=== PATIENT | male | born 1950 | race Caucasian/White ===

== ENCOUNTER → 2018-07-29 09:24 | Outpatient (BNVA) | payer MEDICARE, OTHER, SELFPAY | PROVIDERS: Visit Provider Orthopaedic Surgery | DX: M17.11 Unilateral primary osteoarthritis, right knee (principal); E11.40 Type 2 diabetes mellitus with diabetic neuropathy, unspecified; Z79.4 Long term (current) use of insulin | CPT/HCPCS: 20610; 99211; 99213; J7325 ==

== ENCOUNTER → 2019-01-31 09:46 | Outpatient (BNVA) | payer MEDICARE, OTHER, SELFPAY | PROVIDERS: PCP Internal Medicine; Referring Provider Internal Medicine; Visit Provider Orthopaedic Surgery | DX: M17.11 Unilateral primary osteoarthritis, right knee (principal); Z47.89 Encounter for other orthopedic aftercare; Z98.1 Arthrodesis status; E11.8 Type 2 diabetes mellitus with unspecified complications; Z79.4 Long term (current) use of insulin | CPT/HCPCS: 20610; 99211; 99213; J1040; L1902 ==

== ENCOUNTER → 2019-02-09 07:54 | Outpatient (BNVA) | payer MEDICARE, OTHER, SELFPAY ==
--- NOTE | 2019-02-15 07:09 | OCONE_ITS ---
Date of service: 02/11/19 Time of Service: 08:00 History of Present Illness Chief Complaint: Persistent pain left subtalar joint despite fusion Narrative: Patient is seen in follow-up of left foot and ankle pain despite having a double arthrodesis. He is here to have a trial of a commercially purchased ankle-foot orthosis Assessment and Plan (1) Arthritis of left subtalar joint: Current visit: No Status: Acute Patient will continue to use a ankle stabilizing orthosis however he will try the addition of the polypropylene ankle-foot orthosis and has the ability to modify it to make it fit him in a more custom way and see how he responds to that if this is ineffective then I would refer him to Dr. Nicho Meehan at [facility] for his opinion. The patient does not want any further surgery. [facility] Surgical History (Updated 06/06/16 @ 08:40 by Ila Nieto) Open Carpal Tunnel release (~05/2016) Social History Smoking/Tobacco Use Status: Never Drug use: Never Exam Extrem Other: Overall her foot appearance is benign ankle motion is good he has some subtalar motion because the posterior facet was not fused he is ambulatory and is lace up ankle stabilizing brace I provided him with 2 different ankle-foot orthoses that he can try to see if this can provide increased stability and decrease his ambulatory pain.
== END ==
PROVIDERS: PCP Internal Medicine; Visit Provider Orthopaedic Surgery
DX: M17.11 Unilateral primary osteoarthritis, right knee (principal); Z98.1 Arthrodesis status

== ENCOUNTER → 2020-11-19 15:18 | Outpatient (BNVA) | payer MEDICARE, OTHER, SELFPAY | PROVIDERS: PCP Internal Medicine; Referring Provider Internal Medicine; Visit Provider Student in an Organized Health Care Education/Training Program | DX: M17.11 Unilateral primary osteoarthritis, right knee (principal); M65.332 Trigger finger, left middle finger; Z96.652 Presence of left artificial knee joint | CPT/HCPCS: 20550; 20610; 99213; J1030; J1040 ==

== ENCOUNTER 2021-02-12 13:12 | Outpatient (CLI) | payer MEDICARE, OTHER, SELFPAY ==
--- NOTE | 2021-02-12 12:45 | DI.RAD_ITS ---
Exam(s) XR KNEE RT 2V AP,LAT EXAM: XR KNEE RT 2V AP,LAT CLINICAL HISTORY: pre op R TKA. TECHNIQUE: 2D digital imaging was performed. COMPARISON: MR MRI R LOWER JOINT WO CONT from 04/18/2016 FINDINGS: There is severe narrowing of the medial femoral tibial joint space, with a [id number] appearance. There is periarticular spurring and sclerosis as well as small subchondral cysts. There is varus ang ulation. An Enthesophyte is seen near the lower pole of the patella. There is mild spurring at the articular aspect of the patella. Surgical clips are seen in the medial soft tissues of the upper azucena f region. IMPRESSION: Severe degenerative changes of the medial femoral tibial joint. DATA REPOSITORY: RADIATION DOSE DELIVERED:
--- NOTE | 2021-02-12 12:45 | DI.RAD_ITS ---
Exam(s) XR STANDING ALIGNMENT EXAM: XR STANDING ALIGNMENT CLINICAL HISTORY: PRE OP R TKA. TECHNIQUE: 2D digital imaging was performed. Standing AP views were performed from the pelvis throu gh the ankles. COMPARISON: No exams were available for comparison FINDINGS: BONES: No acute fracture is present. No bony destructive lesion is seen. JOINTS: Knees: Left total knee prosthesis. Marked narrowing of the medial femoral tibial joint space of the right knee with varus angulation. The ankle and hip joints are unremarkable. SOFT TISSUE: Normal. IMPRESSION: Severe degenerative changes of the right knee. No significant leg length discrepancy. DATA REPOSITORY: RADIATION DOSE DELIVERED:
== END 2021-02-12 13:13 | disposition home or self-care (01) ==
LOC: DIORS 13:13
PROVIDERS: PCP Internal Medicine; Referring Provider Internal Medicine; Visit Provider Physician Assistant
DX: Z01.818 Encounter for other preprocedural examination (principal); M17.11 Unilateral primary osteoarthritis, right knee; E11.69 Type 2 diabetes mellitus with other specified complication; Z79.4 Long term (current) use of insulin
CPT/HCPCS: 73560; 77073

== ENCOUNTER 2021-02-18 02:16 | Outpatient (CLI) | payer MEDICARE, SELFPAY ==
[2021-02-18 09:10] LABS: HCT 40.4 % (40.0-50.0); HGB 13.1 g/dL (13.5-17.5); MCH 29.4 pg (27.0-33.0); MCHC 32.4 % (32.0-36.0); MCV 90.6 fL (80-95); MPV 9.5 fL (8.0-11.0); Platelet Count 226 10^3/uL (130-400); RBC 4.46 10^6/uL (4.36-5.78); RDW 13.2 % (11.8-14.1); RDW-SD 44.3 fL
[2021-02-18 09:42] LABS: Anion Gap 9.6 mmol/L (3-11); BUN 23 mg/dL (7-18); CO2 26.4 mmol/L (21.0-32.0); CREATININE 0.9 mg/dL (0.70-1.30); Chloride 103 mmol/L (98-107); Glucose 224 mg/dL (74-106); Potassium 4.6 mmol/L (3.5-5.1); Sodium 139 mmol/L (136-145)
[2021-02-18 11:22] LABS: Source Nasal/Nares
[2021-02-18 16:06] LABS: COVID-19 PCR Negative (Negative)
== END 2021-02-18 02:17 | disposition home or self-care (01) ==
LOC: LBO 02:16
PROVIDERS: PCP Internal Medicine; Visit Provider Student in an Organized Health Care Education/Training Program
DX: M25.561 Pain in right knee (principal); M17.11 Unilateral primary osteoarthritis, right knee; E11.9 Type 2 diabetes mellitus without complications; Z20.822 Contact with and (suspected) exposure to COVID-19; Z01.818 Encounter for other preprocedural examination; Z01.812 Encounter for preprocedural laboratory examination
CPT/HCPCS: 36415; 80048; 85027; 87635; 83036

== ENCOUNTER 2021-02-19 07:59 | Observation (INO) | payer MEDICARE, OTHER, SELFPAY ==
[2021-02-19] VITALS (15 sets, daily range): BP systolic 113–173; BP diastolic 65–85; PULSE 66–86; RESP 13–20; TEMP 36.2–37; TEMPC 36.3; O2SAT 94–97; BMI 39.4
[2021-02-19] MEDS: Acetaminophen 500 MG TAB 1000 MG PO ×3 (06:43→20:01)
[2021-02-19] MEDS: Celecoxib 200 MG CAP 400 MG PO (06:43)
[2021-02-19] MEDS: Gabapentin 300 MG CAP PO (06:43)
--- NOTE | 2021-02-19 06:53 | W.ANESPRE ---
General Info Date of Service Date Performed: 02/19/21 Height: 5 ft 8 in Weight: 117.8 kg Body Mass Index (BMI): 39.4 Surgical Procedure: Operation Date: 02/19/21 07:40 Proposed Procedures Side Surgeon p Knee Total Arthroplasty Right Aston Gutierres MD Meds Allergies and Home Medications Allergies Allergy/AdvReac Type Severity Reaction Status Date / Time No Known Allergies Allergy Unverified 02/19/21 06:19 Home Medication Medication Instructions Recorded Fish Oil 1 tab PO BID 10/05/14 metformin [Glucophage] 1,000 mg PO BID 10/05/14 pantoprazole 40 mg PO DAILY 10/05/14 Diabetes Health Formula 2 tab PO DAILY 10/06/14 Fiber Laxative (methylcellulo) 2 ea PO HS 10/06/14 Victoza 2-Nahum 1.8 mg SQ HS 10/06/14 amitriptyline 10 mg PO HS PRN 10/06/14 cholecalciferol (vitamin D3) 2 tab PO BID 10/06/14 duloxetine [Cymbalta] 60 mg PO BID 10/06/14 metoprolol tartrate 50 mg PO BID 04/25/16 gabapentin 300 mg capsule 900 mg PO TID cap 11/19/20 insulin detemir U-100 100 unit/mL 20 unit SUBCUT BID ml 11/19/20 (3 mL) subcutaneous pen insulin lispro 100 unit/mL 22.5 unit SUBCUT QAC ml 11/19/20 subcutaneous half-unit pen valsartan 160 mg tablet 80 mg PO DAILY 11/19/20 atorvastatin 20 mg tablet 40 mg PO DAILY tab 02/12/21 acetaminophen 1,000 mg PO Q8H PRN PRN #90 cap 02/19/21 aspirin 81 mg PO BID #60 tab 02/19/21 celecoxib 200 mg PO BID #60 cap 02/19/21 oxycodone 5 mg PO Q4H PRN #20 cap 02/19/21 Current Visit Medications: Current Medications Generic Name Dose Route Start Last Admin Trade Name Freq PRN Reason Stop Dose Admin Acetaminophen 1,000 mg 02/19/21 06:00 02/19/21 06:43 Acetaminophen 500 Mg Tab PO 02/19/21 16:00 1,000 mg PREOP SHELLIE Administration Celecoxib 400 mg 02/19/21 06:00 02/19/21 06:43 Celecoxib 200 Mg Cap PO 02/19/21 16:00 400 mg PREOP SHELLIE Administration Gabapentin 300 mg 02/19/21 06:00 02/19/21 06:43 Gabapentin 300 Mg Cap PO 02/19/21 16:00 300 mg PREOP SHELLIE Administration Tranexamic Acid 1,000 mg/ 60 mls @ 360 mls/hr 02/19/21 06:00 Sodium Chloride IVPB 02/19/21 16:00 PREOP SHELLIE Tranexamic Acid 1,000 mg/ 60 mls @ 360 mls/hr 02/19/21 06:00 Sodium Chloride IVPB 02/19/21 16:00 DIRECTED SHELLIE Ringer's Solution 1,000 mls @ 80 mls/hr 02/19/21 06:00 IV 03/20/21 23:59 INFUSION SHELLIE Cefazolin Sodium 3,000 mg/ 100 mls @ 200 mls/hr 02/19/21 06:00 Sodium Chloride IVPB 02/19/21 16:00 PREOP SHELLIE IV Miscellaneous Supplies 1 each 02/19/21 06:00 Iv Access IV 03/20/21 23:59 DIRECTED SHELLIE Sodium Chloride 0 ml 02/19/21 06:00 Normal Saline Flush 10 Ml Syr IV 03/20/21 23:59 PRN PRN Sodium Chloride 0 ml 02/19/21 06:00 Normal Saline 10 Ml Vial IJ 03/20/21 23:59 DIRECTED PRN Sterile Water 0 ml 02/19/21 06:00 Water,Injection,Sterile 10 Ml Vial IJ 03/20/21 23:59 DIRECTED PRN PFSH Active Problems Active Problems: Problem Status Onset Code Primary osteoarthritis of right knee 02/10/17 M17.11 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 Trigger finger, left middle finger M65.332 Medical History Medical History Diabetes Insulin-dependent Hypertension Surgical History Surgical History (Updated 02/19/21 @ 07:26 by MABLE Tripathi) H/O repair of left rotator cuff H/O repair of right rotator cuff x2 H/O right inguinal hernia repair History of carpal tunnel release RIGHT History of repair of anterior cruciate ligament of left knee History of tonsillectomy and adenoidectomy History of total left knee replacement (TKR) History of total right knee replacement (TKR) (02/19/21) Olecranon bursitis of left elbow EXCISION Open Carpal Tunnel release (~05/2016) RIGHT/DR. 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 Butler 1 year ago-MD stated he no longer needed to follow up with him after last visit. Tobacco Smoking/Tobacco Use Status: Never Alcohol Alcohol Intake: current Alcohol intake frequency: holidays/special occasions only Substance Use Substance use: Never Substance use type: does not use Vital Signs and Lab Results Vital Signs Most Recent Vital Signs in EMR: Most Recent Vital Signs Temp Pulse Resp BP Pulse Ox 36.6 C 66 17 135/83 96 02/19/21 06:25 02/19/21 06:25 02/19/21 06:25 02/19/21 06:25 02/19/21 06:25 Lab Results Blood Type / Crossmatch: No Data to Display Complete Blood Count: White Blood Count 7.60 10^3/uL (4.4-10.8) 02/18/21 08:50 02/18/21 Red Blood Count 4.46 10^6/uL (4.36-5.78) 02/18/21 08:50 02/18/21 Hemoglobin 13.1 g/dL (13.5-17.5) L 02/18/21 08:50 02/18/21 Hematocrit 40.4 % (40.0-50.0) 02/18/21 08:50 02/18/21 Platelet Count 226 10^3/uL (130-400) 02/18/21 08:50 02/18/21 Complete Metabolic Panel: Sodium Level 139 mmol/L (136-145) 02/18/21 08:50 02/18/21 Potassium Level 4.6 mmol/L (3.5-5.1) 02/18/21 08:50 02/18/21 Chloride Level 103 mmol/L (98-107) 02/18/21 08:50 02/18/21 Carbon Dioxide Level 26.4 mmol/L (21.0-32.0) 02/18/21 08:50 02/18/21 Blood Urea Nitrogen 23 mg/dL (7-18) H 02/18/21 08:50 02/18/21 Creatinine 0.9 mg/dL (0.70-1.30) 02/18/21 08:50 02/18/21 Estimated GFR/1.73 m2 >= 60.00 (mL/min/1.73m2) 02/18/21 08:50 02/18/21 Calcium Level 9.0 mg/dL (8.5-10.1) 02/18/21 08:50 02/18/21 Glucose Level 224 mg/dL (74-106) H 02/18/21 08:50 02/18/21 Hemoglobin A1c 8.0 % (<5.7) H 02/18/21 08:50 02/18/21 Liver Function Panel: No Data to Display Coagulation Panel: No Data to Display Cardiac Panel: No Data to Display Arterial Blood Gas: No Data to Display Venous Blood Gas: No Data to Display Pancreas Panel: No Data to Display Thyroid Panel: No Data to Display Infectious Disease: Coronavirus (COVID-19)(PCR) Negative (Negative) 02/18/21 08:58 02/18/21 Coronavirus 2019 Source Nasal/Nares 02/18/21 08:58 02/18/21 Blood Cultures: No Data to Display Toxicology Panel: No Data to Display Anesthesia Assessment and Plan Anesthesia History Personal History: No History of Anesthesia Complications Family History: No Family History of Anesthesia Complications Exercise Tolerance Exercise Tolerance: Metabolic Equivalents>4 Pertinent Negatives Pertinent Negatives: No Symptoms of GERD, No Major Cardiovascular Symptoms or Complaints, No Major Pulmonary Symptoms or Complaints and No History of CVA/TIA Cardiac & Pulmonary Exam Cardiac Exam: Normal S1/S2 Heart Sounds Pulmonary Exam: Clear Bilateral Breath Sounds Airway Exam Known Difficult Airway: No Mallampati Class: 2 Mouth Opening: Normal (> 3cm) Thyromental Distance: Greater than 3 cm Neck Range of Motion: Full ROM Neck Circumference: Normal Teeth Condition: Normal Dentition ASA Classification ASA Score: ASA 3 Emergency Case?: No NPO Status NPO Status: NPO Clears >2 hours, Solids >8 hours Anesthesia Plan Resuscitation Status: Full Code Anesthesia Technique: Spinal Anesthesia Airway Planned: Natural Airway Pain Management: Surgeon and patient request nerve block Monitors Used: Standard Monitors
[2021-02-19] MEDS: Lactated Ringers 1,000 ML 80 ML IV ×2 (07:00→11:10)
--- NOTE | 2021-02-19 07:26 | W.PM.DSUDISC ---
Discharge Plan Disposition Patient Disposition: HOME Condition: Good Discharge Details Reason For Visit: Right TKA Attending Provider: Aston Gutierres Primary Care Provider: Sam Johnson Home Meds and New Rx's Prescriptions: New celecoxib 200 mg capsule 200 mg PO BID Qty: 60 RF: 0 aspirin 81 mg tablet,delayed release (DR/EC) 81 mg PO BID Qty: 60 RF: 0 oxycodone 5 mg capsule 5 mg PO Q4H PRNQty: 20 RF: 0 acetaminophen 500 mg capsule 1,000 mg PO Q8H PRN PRNQty: 90 RF: 0 Continued insulin lispro [Humalog Gildardo KwikPen U-100] 100 unit/mL insulin pen, half-unit 22.5 unit subcut QAC RF: 0 Levemir FlexTouch U-100 Insuln 100 unit/mL (3 mL) insulin pen 20 unit subcut BID RF: 0 valsartan 160 mg tablet 80 mg PO DAILY RF: 0 amitriptyline 10 MG tablet 10 mg PO HS PRNRF: 0 Fiber Laxative (methylcellulo) 500 MG tablet 2 ea PO HS RF: 0 cholecalciferol (vitamin D3) 3,000 UNIT tablet 2 tab PO BID RF: 0 Victoza 2-Nahum 0.6 MG/0.1 ML pen injector 1.8 mg SQ HS RF: 0 Diabetes Health Formula 1 EACH tablet 2 tab PO DAILY RF: 0 duloxetine [Cymbalta] 60 MG capsule,delayed release(DR/EC) 60 mg PO BID RF: 0 gabapentin 300 mg capsule 900 mg PO TID RF: 0 pantoprazole 40 MG tablet,delayed release (DR/EC) 40 mg PO DAILY RF: 0 metformin [Glucophage] 1,000 MG tablet 1,000 mg PO BID RF: 0 Fish Oil 500 MG capsule 1 tab PO BID RF: 0 metoprolol tartrate 50 MG tablet 50 mg PO BID RF: 0 atorvastatin [Lipitor] 20 mg tablet 40 mg PO DAILY RF: 0 Discontinued aspirin [Aspirin Low-Strength] 81 MG tablet,chewable 1 tab PO DAILY RF: 0 Discharge Instructions Additional Instructions: Total Knee Discharge Instructions Activity: The most important activity is to walk. You should try to take short walks a few times a day. It is important that when resting you work on keeping the knee straight. Avoid putting a pillow behind the knee as this will encourage flexion. Work on range of motion exercises as provided by Physical Therapy. - Start outpatient physical therapy within 2 weeks. - You should wear the JANNA hose on both legs for 2 weeks. You may remove these at night. You may also use any compression sock in place of the JANNA hose. Dressing: You may remove the Boom wrap on your leg 2 days after your surgery and put on the JANNA stocking given to you from the hospital. Keep the surgical dressing (underneath the BOOM wrap) in place for at least one week. After the first week it may be removed and replaced with light gauze and tape or nothing. The wound and dressing may get wet after 3 days but avoid soaking the dressing or otherwise it will need to be changed. Many people prefer covering the dressing with cling wrap (saran wrap) to minimize it from getting soaked. If it gets wet, just pat dry. If it starts to peel off then it will need to be changed. Medications: - You should take Tylenol and anti-inflammatory Celebrex as your primary pain control medications. If the Celebrex is too expensive or not covered, please call the office for another alternative (Advil/Ibuprofen or Naproxen/Aleve) - You have been prescribed a stronger pain medication Oxycodone for breakthrough pain, take as needed as prescribed. - You have may use your Pantoprozole to help reduce stomach acid and reflux. - You have Gabapentin to take at night for restlessness and nerve pain. - You will be taking Aspirin 81mg twice a day for DVT prevention unless instructed otherwise. - If you have constipation you should take Colace or Miralax (both [id number]). It takes most people 3-4 days to have a bowel movement. Follow-up: 2 weeks If you have any acute concerns or questions, please do not hesitate to contact the office at [phone]. You may contact Dr. Gutierres with any questions after hours through the hospital at [phone] or on his cell phone at [phone]. Referrals: Aston Gutierres MD [ [facility] STAFF PHYSICIAN] - 03/04/21 1:00 pm Equipment/Supplies: Walker Shower/Bathe:: 72 hours Diet:: As Tolerated DS: Diagnosis Discharge Diagnosis (1) Primary osteoarthritis of right knee: Status: Acute
[2021-02-19] MEDS: ceFAZolin 3,000 MG in Normal Saline 100 ML 200 MG IVPB (07:55)
--- NOTE | 2021-02-19 08:18 | W.ANESNERVE ---
Nerve Block Single Injection Procedure Date and Time Date Performed: 02/19/21 Procedure Start: 07:25 Location Where Procedure Performed Procedure Location: PACU Reason Performed: Postoperative Analgesia Requesting Provider: Aston Gutierres Timeout Performed Timeout Performed: Yes Monitoring Used ECG, Blood Pressure and SpO2 Sterility Sterility: Hand Hygiene, Surgical Cap, Surgical Mask, Sterile Gloves, Sterile Drape/Sheet, Eye Protection and Chlorhexidine Sedation Given During Procedure Sedation Given (Indicate Dose Given): Versed IV Dose:: 2 mg Patient Mental Status Patient Mental Status: Sedate with meaningful communication Nerve Block 1st Nerve Block: Laterality: Right Block Type: Adductor Canal Needle / Catheter Used: 100mm SonoPlex II Local Anesthetic Bolus (Indicate Dose Given): Lidocaine used for local infiltration of skin, Injected in 3-5ml increments after negative blood aspiration and Bupivacaine 0.25% Dose:: 15 ml Additives (Indicate Dose Given): None Ultrasound: Sterile probe cover and gel used Ultrasound Image Saved?: Yes Nerve Stimulator: Not Used Paresthesia: None Post Procedure Pain score (0-10): 0 Procedure Tolerated: No Complications Procedure Outcome: Successful Performed By: Ab Castillo
[2021-02-19] MEDS: Ketorolac 30 MG/ML VIAL (08:29)
[2021-02-19] MEDS: Bupivacaine 0.25% Pres-Free 30 ML VIAL (08:29)
[2021-02-19] MEDS: Normal Saline 20 ML VIAL (08:29)
--- NOTE | 2021-02-19 09:46 | ROE_ITS ---
Operative Note Operative Note DATE OF PROCEDURE: 02/19/21 PRE-OP DIAGNOSIS: Right Knee Osteoarthritis POST-OP DIAGNOSIS: same Intraosseous posterior tibial cyst PROCEDURE: Right Total Knee Replacement SURGEON: Aston Gutierres RD MECHANICAL ENGINEER: Umesh Marinelli ANESTHESIA TYPE: Spinal Refer to Anesthesia Record ESTIMATED BLOOD LOSS: 300 PATHOLOGY: none sent TOURNIQUET TIME: 0 COMPLICATIONS: None Patient was transported to: PACU Patient's condition: stable Implants: 1. Depuy Attune Cementless Cruciate Retaining Femoral Component, S ize 7 2. Depuy Attune Cementless Rotating Platform Tibial Component, Size 6 3. Depuy Attune 7x8 CR/RP Poly 4. Depuy Attune Patellar Component, Size 41 Indications: I have seen Edi in clinic for symptoms of knee arthritis, confirmed with radiographic findings. Edi has exhausted nonoperative methods and was having significant limitations in daily function and desired better function and less pain. I discussed the technical details of a knee replacement. I explained the risks of the procedure to include, but not limited to, bleeding, infection, pain, stiffness, fracture, damage to nerves and vessels, damage to muscles and tendons, loosening, need for repeat procedure, blood clot and cardiopulmonary demise. Despite these risks, Edi elected to proceed. Findings: There was significant signs of arthritis throughout the knee involving all 3 compartments. Procedure Description: Edi was greeted in the preoperative holding area where the correct side was identified and marked. The consent was reviewed with the patient and signed. The history and physical was updated. All questions were answered. Preoperative medications were administered: Acetaminophen 1000mg, Celebrex 400mg, and Gabapentin 300mg. An adductor canal block was then administered by the anesthesia team in the PACU. He was taken back to the operating room. A spinal anesthestic was then administered. The patient was placed into the supine position on the operating room table. A nonsterile tourniquet was placed high onto the leg but only used for cementing. Posts were placed for positioning during the procedure. All bony prominences were well padded. Prophylactic antibiotics in the form of Cefazolin were administered. 1g of Tranxemic Acid was given intravenously within 30 minutes of incision. The right leg was then prepped with Chloraprep and draped in a standard fashion with impervious stockinette. A second prep with Chloraprep was performed prior to application of Iodine impregnated skin protection. A timeout to confirm correct identity, side and site, procedure, allergies, anesthesia, and medical concerns was performed. With the knee in some flexion, a midline incision was made overlying the knee. Full thickness skin flaps were raised once the extensor mechanism was encountered. These were raised medially and laterally. Any bleeding was controlled with electrocautery. Once the extensor mechanism was fully exposed, a medial parapatellar arthrotomy was performed in a flexed position. All bleeding from the arthrotomy and the geniculate arteries was coagulated. A medial subperiosteal peel was performed with electrocautery to the midcoronal plane. The fat pad was removed while keeping the patellar tendon protected. The anterior distal femur synovium was removed for later visualization. The ACL and PCL were resected and the anterior horn of the lateral meniscus was transected. The knee was then flexed with the patella everted. Large osteophytes from the tibia were removed. Large osteophytes from the femur were removed. Using a step drill, and based on preoperative templating, the femoral canal was entered. This was done with a step drill without any difficulty. The intramedullary distal femoral cut guide was inserted, set to a 5 degree valgus cut and 9mm cut thickness. The distal femoral cut guide was then held in position and pinned. With the soft tissues protected, the distal cut was performed. This was passed over a few times to ensure a planar cut. I then turned attention to the tibia. The extramedullary guide was placed onto the leg. The distal aspect was slid medial to adjust for position of center of ankle and stay in line with shaft of the tibia. Approximately 3-5 degrees of posterior slope was kept in the proximal cutting guide. The center of the guide was aligned with the PCL. The stylus was used to assess cut thickness. The medial side, most involved side, was set for a 2mm cut. This was then held in position and pinned into place with 2 additional pins and a cross pin for stability. The medial and lateral collateral ligaments were protected and the cut was performed. With this completed, it was assessed and noted to be of appropriate dimensions. The guide was removed. A spacer block was inserted and the knee was brought into extension. The 8mm spacer block provided full extension, without hyperextension and with stability of both the medial and lateral collateral ligaments was assessed. The pins from the femur and the tibia were then removed. The distal femur was then sized. The anterior stylus was placed onto the lateral ridge of the anterior femur. This indicated a size 7 femur. The external rotation of the guide was adjusted to 5 degrees to match the epicondylar axis, perpendicular to [place]?s line. The 4-in-1 cutting guide was the placed. The posterior medial femur cut was evaluated and appeared of good thickness. The spacer block was inserted underneath the cutting guide and stability was confirmed in 90 degrees of flexion. An carmenza wing was used to confirm appropriate position of the anterior cut to avoid notching. This cutting guide was ensured to be flush on the cut surface and then pinned into place with headed pins. While protecting the soft tissues, quad tendon, and collateral ligaments, the anterior and posterior cuts were performed with a saw. The central two pins were removed and the posterior and anterior chamfers were cut next. The notch-cutting guide was placed. This was pinned to lateralize the femoral component as much as possible while keeping it flush on the cut surface. This was then pinned into position. A reciprocating saw was used to make the notch cut. A rasp smoothed the cut surfaces. The medial and lateral menisci were removed. A trial femoral component was then inserted, impacted down to the cut surfaces, and the lug holes were drilled. A provisional trial tibial component was placed and the knee was brought through range of motion. There was noted to be excellent extension and flexion. There was no significant instability. The patella was tracking without thumbs. A size 8mm polyethylene component provided the best range of motion and stability with less than 2mm gapping with medial and lateral stress and full extension without significant hyperextension. The tibial cut surface was fully exposed. There is noted to be a cyst in the posterior aspect of the tibia. The cyst contents were removed which appeared to be gangrenous in nature consistent with an intraosseous cyst. I was approximately 2 cm in mediolateral dimension and 1 cm in anterior to posterior dimension and approximate 1 cm in depth. This is contents removed with a curette. The cyst luo were roughened with a curette followed by some penetrating holes with a 2 mm drill. I then used some bone from the previous bone cuts to pack into the space. The tibia was then sized as a 6. The knee was then brought into extension and the patella was measured as 26mm. Using the patellar clamp and cut guide, this was resected to a flat surface with at least 13mm of thickness remaining. The size 41 patella fit the best. This was oriented and then clamped into position. The lugs were drilled. The trial components were removed. The final components were opened on the back table. The periosteal and capsular tissues, especially posteriorly, around the knee were then systematically injected with a periarticular cocktail consisting of 50cc 0.25% Marcaine, 30mg Ketorolac, 20cc of Exparal and 50cc of injectable saline. The knee was thoroughly irrigated with a pulse lavage and dried. I rrisept was also used to irrigate the tissues. On the back table, with the implants opened, the cement was mixed. One batch of high viscosity cement was prepared with vacuum assistance. After the cement was ready a small amount was placed on the cut surface of the patella and the patellar button was clamped into position and held. And was then turned to placement of the components. The tibia had been previously marked during trialing to correspond to the center of the tibial component to help with rotation. The trial was aligned to this umesh, approximately rotated to the medial 1/3rd of the tibial tubercle. The trial was pinned into place. The tibia was prepared with a reamer and a keel punch and lug holes. Bone from the drilling of the long holes in the reamer was then pushed into the posterior tibial cyst until was flush with the cut surface of the tibia. Starting with the tibial component, the tibia was subluxed anteriorly and the lug holes of the component were lined up. The tibia was then impacted with an impactor and mallet until the tibial component was in contact with the tibia. The final polyethylene component was inserted. Then, the femoral component was inserted. The lug holes were aligned and the component was impacted into position. The knee was irrigated with Irrisept chlorhexadine solution. This was allowed to sit in the knee for 3 minutes. After the cement had finally cured, approximately 15min, the clamp was removed from the patella and the knee was taken through range of motion. The patella was tracking with a no-thumbs technique. The capsule was then reapproximated with a No. 1 Vicryl at multiple locations. The capsule was finally closed with a No. 2 Stratafix, barbed suture. The second dosing of 1g TXA was started. Deep tissues were then reapproximated with 0 Vicryl and 2-0 Vicryl. The skin was closed with a running 3-0 Monocryl in a subcuticular fashion. This was reinforced with skin glue. A Mepilex silver dressing was applied along with a [id number] NINO wrap. A CryoCuff was applied. Edi was transferred to the hospital bed without difficulty an suffering no apparent complication. Edi has a good prognosis. Physical therapy will start today and without restrictions, weight-bearing as tolerated. Aspirin 81mg BID will be used for DVT prophylaxis.
--- NOTE | 2021-02-19 09:56 | W.ANESPOSTOP ---
Postoperative Evaluation Date, Time and Location Date Performed: 02/19/21 Time Performed: 09:56 Patient Location: PACU Vital Signs Most Recent Imported Vital Signs: Most Recent Vital Signs Temp Pulse Resp BP Pulse Ox 36.6 C 66 17 135/83 96 02/19/21 06:25 02/19/21 06:25 02/19/21 06:25 02/19/21 06:25 02/19/21 06:25 Most Recent Manually Entered Vital Signs: Adult Blood Pressure: 114/66 Heart Rate: 77 Respirations: 18 Oxygen Saturation (%): 97 Temperature (C): 36.3 C Pain Score (0-10 Scale): 0 Pain Score Most Recent Pain Score: Most Recent Pain Score Pain Level 7 02/19/21 06:25 Assessment Mental Status: Awake (Alert & Oriented to Patient Baseline) Airway and Respiratory Function: Patent airway with normal (patient baseline) respiratory exam Cardiovascular Function: Hemodynamically Stable Hydration Status: Adequately Hydrated Nausea & Vomiting: No Nausea or Vomiting Pain: Pt. Denies Any Pain Peripheral Nerve Block: Regional nerve block not resolved at time of post operative discharge
[2021-02-19] MEDS: HYDROmorphone 2 MG/ML VIAL IVP ×2 (10:10→10:23)
[2021-02-19] MEDS: Normal Saline Flush 10 ML SYR IV ×3 (10:13→11:43)
[2021-02-19] MEDS: oxyCODONE 5 MG TAB PO ×2 (11:41→14:33)
[2021-02-19] MEDS: Gabapentin 300 MG CAP 900 MG PO ×2 (11:41→20:02)
[2021-02-19] MEDS: Polyethylene Glycol 3350 17 GM PACKET PO (11:42)
[2021-02-19] MEDS: ceFAZolin 1 GM/50 ML BAG IVPB ×2 (11:42→20:00)
[2021-02-19] MEDS: Docusate Sodium 100 MG CAP PO (11:45)
--- NOTE | 2021-02-19 12:16 | IN_ITS ---
Date of service: 02/19/21 Time of Service: 11:45 PT Notes Visit Reasons: OA Right Knee Inpatient Physical Therapy Evaluation Date: 02/19/21 Referring Doctor: Dr. Gutierres PT Orders: PT CONSULT: s/p right TKA Precautions: fall, standard Patient Profile/Admitting Diagnosis: Patient admitted s/p right TKA, post op day 0. PMHX: Diabetes Insulin-dependent Hypertension Surgical History (Updated 02/12/21 @ 13:19 by MABLE Tripathi) H/O repair of left rotator cuff H/O repair of right rotator cuff x2 H/O right inguinal hernia repair History of carpal tunnel release RIGHT History of repair of anterior cruciate ligament of left knee History of tonsillectomy and adenoidectomy History of total left knee replacement (TKR) Olecranon bursitis of left elbow EXCISION Open Carpal Tunnel release (~05/2016) RIGHT/DR. 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 Needs to manage 5 steps with right sided rail to get to bedroom. Typically ambulates without AD. Active and independent at baseline. Equipment Owned/DME: crutches Subjective: Edi Martin, states that he is feeling good. He's looking forward to getting up. He is nervous about returning home, stating that he had a difficult time managing his pain after his left knee replacement back in the . He brought crutches with him, although admits that he's not great with them. States that he tried them out before surgery and had difficulty managing them. He's agreeable to trying the walker today. Objective: General Observation: Resting in bed with IV in LUE. Cryocuff in place to right knee. Mental Status: A&Ox3. Pleasant and cooperative throughout session. Pain: 0/10 ROM: Right Upper Extremity: WFL Left Upper Extremity: WFL Right Lower Extremity: Demonstrates full active knee extension, and right knee flexion to 95 degrees actively. Left Lower Extremity: WFL Strength: Right Upper Extremity: WFL Left Upper Extremity: WFL Right Lower Extremity: Able to perform active SLR without extension lag for 10 reps. Left Lower Extremity: WFL Sensation: intact distally Bed Mobility/Transfers: supine-sit: supervision only sit-stand: supervision stand-sit: supervision Gait: Patient ambulates with FWW, supervision x 25'. Balance: Static Sitting: normal Dynamic Sitting: normal Static Standing: good Dynamic Standing: fair Special Tests: Mobility Limitations Standardized Measure [facility] AM-PAC 6 clicks Basic Mobility Inpatient Short Form: Raw Score: 21 CMS Score: 29% deficit Informed Consent/Education: Patient instructed in purpose of PT consult and plan of care. Treatment: Today's session consisted of evaluation, followed by gait and transfer training. Patient was instructed in early post-op exercises, including ankle pumps, quad sets and SLR. Assessment: Patient is a 70 year old male referred to physical therapy services with the diagnosis of right knee OA, s/p post right TKA, post op day 0. Patient presents with clinical signs and symptoms consistent with post-op status, as demonstrated by the following impairment level findings: 1. Decreased RLE strength 2. Decreased activity tolerance 3. gait impairments Impairments are contributing to the following functional limitations: 1. unable to ambulate community distances 2. unable to manage stairs 3. decreased activity tolerance Patient is assessed as Moderate [id number] complexity based on the following: History: Patient is a 70 year old male with right knee OA, now post op day 0 following right TKA. Complicating factors include co-morbidities of IDDM and HTN, as well as multiple previous orthopedic surgeries. Examination: functional limitations as noted above Presentation: evolving Decision Making: moderate complexity Goals: Goals X1 week 1. Supine-Sit : independent 2. Sit-Supine : independent 3. Sit-Stand : independent 4. Stand-Sit [: independent 5. Bed-Chair: supervision with LRD 6. Chair-Bed: supervision with LRD 7. Gait : supervision with LRD x 150' 8. Stairs : supervision to ascend and descend 3 steps with single rail 9. Independent with home exercise program Plan of Care/Treatment Plan: 1-2x/day, 7 days/week x 1 week. Plan of care has been reviewed with the WET ROOM SUPERVISOR providing the service under Physical Therapy direction. Initiate Physical Therapy intervention for strengthening, bed mobility, transfers, gait, stairs, balance training, use of assistive device. DISCHARGE RECOMMENDATIONS: home. May require FWW at discharge; will assess with crutches tomorrow am to determine safety. TREATMENT CODE/TIME: 11:45-12:15 ([id number]) Zo Doe, PT, DPT [facility]
[2021-02-19] MEDS: Insulin Aspart 300 UNITS/3 ML PEN SC ×2 (12:57→17:32)
--- NOTE | 2021-02-19 14:22 | PT.INTREAT ---
Date of service: 02/19/21 Time of Service: 14:05 PT Notes Visit Reasons: OA Right Knee Inpatient Physical Therapy Treatment Note [facility] Date: 02/19/2021 PRECAUTIONS: WBAT R SUBJECTIVE: Edi is pleasant and agreeable to participating in PT. He states that he would like to get back into bed, as he felt himself starting to doze in his chair. OBJECTIVE: PAIN: No c/o pain BED MOBILITY/TRANSFERS Sit-supine: I Sit-stand: S Stand-sit: S Chair-bed: S GAIT Assistive Device: FWW Weight bearing: WBAT R Assist: S Distance: 20' THEREX: Patient was instructed in a LE strengthening and stabilization, completed in seated and supine positions,as per flow sheet. ASSESSMENT: Patient tolerated session well without complaint. He was able to tolerate ther ex at EOB and in supine positions. PLAN: Continue with gait training and LE strengthening for improved mobility. TREATMENT CODE/TIME: 15 minutes; [id number] (14:05)
[2021-02-19] MEDS: Celecoxib 200 MG CAP PO (20:01)
[2021-02-19] MEDS: Aspirin E.C. 81 MG TABEC PO (20:02)
[2021-02-19] MEDS: DULoxetine 30 MG CAP 60 MG PO (20:02)
[2021-02-19] MEDS: Metoprolol 50 MG TAB PO (20:02)
[2021-02-19] MEDS: Psyllium PKT 1 EACH PO (22:37)
[2021-02-20 00:06] VITALS: BP 121/76; PULSE 89; RESP 16; TEMP 36.6; O2SAT 98
[2021-02-20] MEDS: Lactated Ringers 1,000 ML 80 ML IV (00:15)
[2021-02-20 03:24] VITALS: BP 129/65; PULSE 75; RESP 16; TEMP 36.5; O2SAT 97
[2021-02-20] MEDS: ceFAZolin 1 GM/50 ML BAG IVPB (04:20)
[2021-02-20] MEDS: oxyCODONE 5 MG TAB PO ×2 (05:43→09:41)
--- NOTE | 2021-02-20 07:19 | W.PM.DS.N ---
Date of service: 02/20/21 Time of Service: 07:17 DS: Diagnosis Discharge Diagnosis (1) Primary osteoarthritis of right knee: Status: Acute Discharge Plan Disposition Patient Disposition: HOME Condition: Good Discharge Details Reason For Visit: OA Right Knee Admit Date/Time: 02/19/21 07:59 Admit Provider: Aston Gutierres Attending Provider: Aston Gutierres Primary Care Provider: Sam Johnson Hospital Course Hospital Course: Patient was admitted to the medical/surgical floor following the procedure. The surgery was tolerated well without any notable medical, surgical, or anesthetic complications. Mobilization began postoperatively. He was voiding spontaneously. Vitals were stable. Physical therapy worked with the patient and was cleared for discharge home. No acute medical issues. Pain was controlled on oral regimen. Home Meds and New Rx's Prescriptions: New celecoxib 200 mg capsule 200 mg PO BID Qty: 60 RF: 0 aspirin 81 mg tablet,delayed release (DR/EC) 81 mg PO BID Qty: 60 RF: 0 oxycodone 5 mg capsule 5 mg PO Q4H PRNQty: 20 RF: 0 acetaminophen 500 mg capsule 1,000 mg PO Q8H PRN PRNQty: 90 RF: 0 Continued insulin lispro [Humalog Gildardo KwikPen U-100] 100 unit/mL insulin pen, half-unit 22.5 unit subcut QAC RF: 0 Levemir FlexTouch U-100 Insuln 100 unit/mL (3 mL) insulin pen 20 unit subcut BID RF: 0 valsartan 160 mg tablet 80 mg PO DAILY RF: 0 amitriptyline 10 MG tablet 10 mg PO HS PRNRF: 0 Fiber Laxative (methylcellulo) 500 MG tablet 2 ea PO HS RF: 0 cholecalciferol (vitamin D3) 3,000 UNIT tablet 2 tab PO BID RF: 0 Victoza 2-Nahum 0.6 MG/0.1 ML pen injector 1.8 mg SQ HS RF: 0 Diabetes Health Formula 1 EACH tablet 2 tab PO DAILY RF: 0 duloxetine [Cymbalta] 60 MG capsule,delayed release(DR/EC) 60 mg PO BID RF: 0 gabapentin 300 mg capsule 900 mg PO TID RF: 0 pantoprazole 40 MG tablet,delayed release (DR/EC) 40 mg PO DAILY RF: 0 metformin [Glucophage] 1,000 MG tablet 1,000 mg PO BID RF: 0 Fish Oil 500 MG capsule 1 tab PO BID RF: 0 metoprolol tartrate 50 MG tablet 50 mg PO BID RF: 0 atorvastatin [Lipitor] 20 mg tablet 40 mg PO DAILY RF: 0 Discontinued aspirin [Aspirin Low-Strength] 81 MG tablet,chewable 1 tab PO DAILY RF: 0 Discharge Instructions Additional Instructions: Total Knee Discharge Instructions Activity: The most important activity is to walk. You should try to take short walks a few times a day. It is important that when resting you work on keeping the knee straight. Avoid putting a pillow behind the knee as this will encourage flexion. Work on range of motion exercises as provided by Physical Therapy. - Start outpatient physical therapy within 2 weeks. - You should wear the JANNA hose on both legs for 2 weeks. You may remove these at night. You may also use any compression sock in place of the JANNA hose. Dressing: You may remove the Boom wrap on your leg 2 days after your surgery and put on the JANNA stocking given to you from the hospital. Keep the surgical dressing (underneath the BOOM wrap) in place for at least one week. After the first week it may be removed and replaced with light gauze and tape or nothing. The wound and dressing may get wet after 3 days but avoid soaking the dressing or otherwise it will need to be changed. Many people prefer covering the dressing with cling wrap (saran wrap) to minimize it from getting soaked. If it gets wet, just pat dry. If it starts to peel off then it will need to be changed. Medications: - You should take Tylenol and anti-inflammatory Celebrex as your primary pain control medications. If the Celebrex is too expensive or not covered, please call the office for another alternative (Advil/Ibuprofen or Naproxen/Aleve) - You have been prescribed a stronger pain medication Oxycodone for breakthrough pain, take as needed as prescribed. - You should continue to use your Pantoprozole to help reduce stomach acid and reflux. - You should continue to take your Gabapentin restlessness and nerve pain. - You will be taking Aspirin 81mg twice a day for DVT prevention unless instructed otherwise. - If you have constipation you should take Colace or Miralax (both [id number]). It takes most people 3-4 days to have a bowel movement. Follow-up: 2 weeks If you have any acute concerns or questions, please do not hesitate to contact the office at [phone]. You may contact Dr. Gutierres with any questions after hours through the hospital at [phone] or on his cell phone at [phone]. Referrals: Aston Gutierres MD [ [facility] STAFF PHYSICIAN] - 03/04/21 1:00 pm Activity:: Activity as Tolerated Equipment/Supplies:: Walker Diet:: As Tolerated Discharge Orders Discharge Orders: Discharge Order (Routine); Ordered 02/20/21 Ordered By: Aston Gutierres DS: Summary Time Spent with Patient providing and/or coordinating discharge services: Less than 30 minutes Status at Discharge Functional status at discharge: uses cane/walker Overall status at discharge: patient is progressing back to baseline Mental Status: mental status grossly normal Speech and Movement: speech and movement normal Mood: congruent mood Affect: normal affect Exam Narrative Exam Narrative: Sitting comfortably in the chair. He is able demonstrate active knee extension active flexion with a straight leg raise intact. Psych Mental Status: mental status grossly normal Speech and Movement: speech and movement normal Mood: congruent mood Affect: normal affect DS: Data Vitals/I&O Vitals and I&O: Vital Signs Temperature 36.5 C 02/20/21 03:24 Temperature Source Tympanic 02/20/21 03:24 Pulse 75 02/20/21 03:24 Pulse Rhythm Regular 02/20/21 04:24 Respiratory Rate 16 02/20/21 03:24 Respiratory Effort Non-Labored 02/20/21 04:24 Respiratory Depth Normal 02/20/21 04:24 Respiratory Pattern Normal 02/20/21 04:24 Blood Pressure 129/65 02/20/21 03:24 Pulse Oximetry 97 02/20/21 03:24 Respiratory End-tidal CO2 37 02/19/21 10:41 Oxygen Delivery Method Room Air 02/20/21 03:24 Oxygen Flow Rate 0 02/20/21 03:24 Pain Level 6 02/20/21 05:43 Comment 02/19/21 19:46 Intake & Output 02/19/21 02/19/21 02/20/21 11:59 23:59 11:59 Intake Total 1733.333 / 4153.333 2420 / 4153.333 1000 / 1000 Output Total 300 / 700 400 / 700 1600 / 1600 Balance 1433.333 / 3453.333 2020 / 3453.333 -600 / -600 Weight 117.8 kg Intake: IV 1133.333 / 2233.333 1100 / 2233.333 1000 / 1000 Oral 600 / 1920 1320 / 1920 Output: Urine 400 / 400 1600 / 1600 Estimated Blood Loss 300 / 300 Other: Urine Color Yellow Pale Urine Appearance Clear Comment Patient went to the bathroom with standby assistance and used the toilet. He flushed it so I was unable to measure the amount. Voiding Methods Toilet Urinal [facility] Medical History Diabetes Insulin-dependent Hypertension Surgical History (Updated 02/19/21 @ 07:26 by MABLE Tripathi) H/O repair of left rotator cuff H/O repair of right rotator cuff x2 H/O right inguinal hernia repair History of carpal tunnel release RIGHT History of repair of anterior cruciate ligament of left knee History of tonsillectomy and adenoidectomy History of total left knee replacement (TKR) History of total right knee replacement (TKR) (02/19/21) Olecranon bursitis of left elbow EXCISION Open Carpal Tunnel release (~05/2016) RIGHT/DR. OTOOLE Osteoarthritis of carpometacarpal (CMC) joint of left thumb S/P trapezial arthroplasty S/P right knee arthroscopy x2 Status post ankle arthrodesis LEFT Status post double vessel coronary artery bypass 2016-F?U with [facility] [place] Dr. Butler 1 year ago-MD stated he no longer needed to follow up with him after last visit. Social History Smoking/Tobacco Use Status: Never Smoking risk assessment performed?: Yes Alcohol Intake: current Alcohol Intake frequency: holidays/special occasions only Drug use: Never Substance use type: does not use Current gender identity: male Do you feel safe at home: Yes Do you feel safe in your relationship?: Yes
[2021-02-20 07:30] VITALS: BP 142/78; PULSE 75; RESP 16; TEMP 36.6; O2SAT 98
[2021-02-20] MEDS: DULoxetine 30 MG CAP 60 MG PO (08:00)
[2021-02-20] MEDS: Acetaminophen 500 MG TAB 1000 MG PO (08:00)
[2021-02-20] MEDS: Celecoxib 200 MG CAP PO (08:01)
[2021-02-20] MEDS: Aspirin E.C. 81 MG TABEC PO (08:01)
[2021-02-20] MEDS: Valsartan 80 MG TAB PO (08:01)
[2021-02-20] MEDS: Atorvastatin 20 MG TAB 40 MG PO (08:02)
[2021-02-20] MEDS: Gabapentin 300 MG CAP 900 MG PO (08:02)
[2021-02-20] MEDS: Metoprolol 50 MG TAB PO (08:03)
[2021-02-20] MEDS: Pantoprazole 40 MG TABCR PO (08:03)
[2021-02-20] MEDS: metFORMIN 500 MG TAB 1000 MG PO (08:03)
[2021-02-20] MEDS: Insulin Aspart 300 UNITS/3 ML PEN SC (08:05)
--- NOTE | 2021-02-20 10:16 | PTTR_ITS ---
Date of service: 02/20/21 Time of Service: 07:40 PT Notes Visit Reasons: OA Right Knee Inpatient Physical Therapy Treatment Note [facility] Date: 02/20/2021 PRECAUTIONS: WBAT R SUBJECTIVE: Edi is pleasant and agreeable to participating in PT. He reports that he has been transferring and ambulating independently without his FWW within his room overnight and this morning. He feels that he is ready to di scharge safely to home today, and reports that he does not plan to utilize any assistive device. OBJECTIVE: Following discussion with nursing, patient is cleared for independent transfers and ambulation within his room. PAIN: No c/o pain BED MOBILITY/TRANSFERS Supine-sit: I Sit-supine: I Sit-stand: I Stand-sit: I Bed-chair: I Chair-bed: I GAIT Assistive Device: FWW No AD Weight bearing: WBAT R Assist: I Distance: 200' with FWW 75' without AD THEREX: Patient was instructed in a LE strengthening and stabilization, completed in a seated position, as per flow sheet. STAIRS: Up/down 3x4 and 2x6 using U rail and a step-to pattern, independently. ASSESSMENT: Patient tolerated session well without complaint. He was able to tolerate a progression in gait distance with FWW support and without use of assistive device. PLAN: Discharge to home later today, per provider. TREATMENT CODE/TIME: 20 minutes; 98707 (07:40)
--- NOTE | 2021-02-22 10:33 | PT.INDS ---
Date of service: 02/20/21 Time of Service: 12:00 PT Notes Visit Reasons: OA Right Knee Treatment Dates: 02/19/21 - 02/20/21 Referring Doctor: Dr. Gutierres PT Orders: PT CONSULT: s/p right TKA THIS DOCUMENT SERVES A SUMMARY OF CARE. Patient Profile/Admitting Diagnosis: Patient admitted s/p right TKA, post op day 0. He was seen for 2 PT sessions over the course of 2 days and able to transition back home on 02/20/21. PMHX: Diabetes Insulin-dependent Hypertension Surgical History (Updated 02/12/21 @ 13:19 by MABLE Tripathi) H/O repair of left rotator cuff H/O repair of right rotator cuff x2 H/O right inguinal hernia repair History of carpal tunnel release RIGHT History of repair of anterior cruciate ligament of left knee History of tonsillectomy and adenoidectomy History of total left knee replacement (TKR) Olecranon bursitis of left elbow EXCISION Open Carpal Tunnel release (~05/2016) RIGHT/DR. 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 Needs to manage 5 steps with right sided rail to get to bedroom. Typically ambulates without AD. Active and independent at baseline. Equipment Owned/DME: crutches Subjective: none obtained, as patient was able to d/c home 02/20/21. Objective: ROM: Right Upper Extremity: WFL Left Upper Extremity: WFL Right Lower Extremity: Demonstrates full active knee extension, and right knee flexion to 95 degrees actively. Left Lower Extremity: WFL Strength: Right Upper Extremity: WFL Left Upper Extremity: WFL Right Lower Extremity: Able to perform active SLR without extension lag for 10 reps. Left Lower Extremity: WFL Sensation: intact distally Bed Mobility/Transfers: supine-sit: independent sit-stand:independent stand-sit: independent bed-chair: independent with FWW Gait: Patient ambulates independently with FWW x 200'. Stairs: Patient able to independently negotiate 4 steps x 3, 6 step x 2 with unilateral rail, step-to gait pattern. Balance: Static Sitting: normal Dynamic Sitting: normal Static Standing: good Dynamic Standing: fair Informed Consent/Education: Patient instructed in purpose of PT consult and plan of care. Assessment: Patient is a 70 year old male referred to physical therapy services with the diagnosis of right knee OA, s/p post right TKA, post op day 0. The participated in 2 sessions of skilled PT intervention over the course of 2 days, demonstrating significant improvements in mobility and safety. All PT goals were met, and patient was able to transition back home on 02/20/2021. Is appropriate for DC from PT services in acute care setting. Goals: Goals X1 week 1. Supine-Sit : independent (MET) 2. Sit-Supine : independent(MET) 3. Sit-Stand : independent(MET) 4. Stand-Sit [: independent(MET) 5. Bed-Chair: supervision with LRD(MET) 6. Chair-Bed: supervision with LRD(MET) 7. Gait : supervision with LRD x 150'(MET) 8. Stairs : supervision to ascend and descend 3 steps with single rail(MET) 9. Independent with home exercise program(MET) Plan of Care/Treatment Plan: DC from PT services DISCHARGE RECOMMENDATIONS: home. TREATMENT CODE/TIME: None Zo Doe, PT, DPT [facility]
== END 2021-02-20 10:03 | disposition home or self-care (01) ==
LOC: MS 11:54
PROVIDERS: Admitting Provider Student in an Organized Health Care Education/Training Program; PCP Internal Medicine; Visit Provider Student in an Organized Health Care Education/Training Program
PROC: (CPT 27447; principal; 2021-02-19 07:30)
DX: M17.11 Unilateral primary osteoarthritis, right knee (principal); M85.461 Solitary bone cyst, right tibia and fibula; E11.9 Type 2 diabetes mellitus without complications; I10 Essential (primary) hypertension; Z79.4 Long term (current) use of insulin; Z96.652 Presence of left artificial knee joint
CPT/HCPCS: 27447; C1776; 97162; 97530; G0378; J0690; J1100; J1885; J2370; J2405; J3490

== ENCOUNTER 2021-03-04 13:55 | Outpatient (CLI) | payer MEDICARE, OTHER, SELFPAY ==
--- NOTE | 2021-03-04 12:45 | DI.RAD_ITS ---
Exam(s) XR KNEE RT 1V XR STANDING ALIGNMENT EXAM: XR STANDING ALIGNMENT CLINICAL HISTORY: 1st post op R TKA. TECHNIQUE: 2D digital imaging was performed. Standing AP views were performed from the pelvis throu gh the ankles. COMPARISON: CR XR STANDING ALIGNMENT from 02/12/2021 CR XR KNEE RT 1V from 03/04/2021 CR XR KNEE RT 1V from 03/04/2021 FINDINGS: BONES: No acute fracture is present. No bony destructive lesion is seen. Hardware left ankle. The l eft femoral head projects 10 millimeters superior to the right. JOINTS: Knees: Bilateral total knee prostheses. Right prosthesis recently placed. The ankle and hip joints are unremarkable. SOFT TISSUE: Vascular clips right medial knee. Mild soft tissue edema anteriorly right knee. IMPRESSION: Mild leg length discrepancy. DATA REPOSITORY: RADIATION DOSE DELIVERED:
== END 2021-03-04 13:56 | disposition home or self-care (01) ==
LOC: DIORS 13:55
PROVIDERS: PCP Internal Medicine; Referring Provider Internal Medicine; Visit Provider Student in an Organized Health Care Education/Training Program
DX: Z96.651 Presence of right artificial knee joint (principal); Z47.1 Aftercare following joint replacement surgery
CPT/HCPCS: 73560; 77073

== ENCOUNTER → 2021-04-05 09:09 | Outpatient (BNVA) | payer MEDICARE, SELFPAY | PROVIDERS: PCP Internal Medicine; Referring Provider Internal Medicine; Visit Provider Student in an Organized Health Care Education/Training Program | DX: Z47.1 Aftercare following joint replacement surgery (principal); Z96.651 Presence of right artificial knee joint ==

== ENCOUNTER → 2021-05-17 08:23 | Outpatient (BNVA) | payer MEDICARE, SELFPAY | PROVIDERS: PCP Internal Medicine; Referring Provider Internal Medicine; Visit Provider Student in an Organized Health Care Education/Training Program | DX: Z47.1 Aftercare following joint replacement surgery (principal); Z96.651 Presence of right artificial knee joint ==

== ENCOUNTER → 2021-08-16 08:06 | Outpatient (BNVA) | payer MEDICARE, OTHER, SELFPAY | PROVIDERS: PCP Internal Medicine; Referring Provider Internal Medicine | DX: M65.332 Trigger finger, left middle finger (principal) | CPT/HCPCS: 99213 ==

== ENCOUNTER 2021-09-02 03:01 | Outpatient (CLI) | payer MEDICARE, OTHER, SELFPAY ==
[2021-09-02 10:09] LABS: Source Nasal/Nares
[2021-09-02 12:57] LABS: COVID-19 PCR Negative (Negative)
== END 2021-09-02 03:02 | disposition home or self-care (01) ==
LOC: LBO 03:02
PROVIDERS: PCP Internal Medicine; Visit Provider Student in an Organized Health Care Education/Training Program
DX: Z20.822 Contact with and (suspected) exposure to COVID-19 (principal)
CPT/HCPCS: 87635

== ENCOUNTER 2021-09-03 11:17 | Day surgery (SDC) | payer MEDICARE, OTHER, SELFPAY ==
--- NOTE | 2021-09-03 10:02 | PDOC.DSDIS_ITS ---
Discharge Plan Disposition Patient Disposition: HOME Condition: Good Discharge Details Reason For Visit: Left middle trigger finger Attending Provider: Aston Gutierres Primary Care Provider: Sam Johnson Home Meds and New Rx's Prescriptions: Continued insulin lispro [Humalog Gildardo KwikPen U-100] 100 unit/mL insulin pen, half- unit 22.5 unit subcut QAC RF: 0 Levemir FlexTouch U-100 Insuln 100 unit/mL (3 mL) insulin pen 20 unit subcut BID RF: 0 valsartan 160 mg tablet 80 mg PO DAILY RF: 0 amitriptyline 10 MG tablet 10 mg PO HS PRNRF: 0 Fiber Laxative (methylcellulo) 500 MG tablet 2 ea PO HS RF: 0 cholecalciferol (vitamin D3) 3,000 UNIT tablet 2 tab PO BID RF: 0 Victoza 2-Nahum 0.6 MG/0.1 ML pen injector 1.8 mg SQ HS RF: 0 Diabetes Health Formula 1 EACH tablet 2 tab PO DAILY RF: 0 duloxetine [Cymbalta] 60 MG capsule,delayed release(DR/EC) 60 mg PO BID RF: 0 gabapentin 300 mg capsule 900 mg PO TID RF: 0 pantoprazole 40 MG tablet,delayed release (DR/EC) 40 mg PO DAILY RF: 0 metformin [Glucophage] 1,000 MG tablet 1,000 mg PO BID RF: 0 Fish Oil 500 MG capsule 1 tab PO BID RF: 0 metoprolol tartrate 50 MG tablet 50 mg PO BID RF: 0 atorvastatin [Lipitor] 20 mg tablet 40 mg PO DAILY RF: 0 acetaminophen 500 mg capsule 1,000 mg PO Q8H PRN PRNQty: 90 RF: 0 Discharge Instructions Stand Alone Forms: [place] Finger Release Activity:: Elevate Remove Dressings/Wound Care:: 48 hours Shower/Bathe:: 48 hours Diet:: As Tolerated Discharge Orders Discharge Orders: Discharge Order (Routine); Ordered 09/03/21 Ordered By: Iman Conklin DS: Diagnosis Discharge Diagnosis (1) Trigger finger, left middle finger: Status: Acute
[2021-09-03 11:35] VITALS: BP 152/87; PULSE 75; RESP 18; TEMP 36.6; O2SAT 98
[2021-09-03 12:18] VITALS: BP 131/76; PULSE 76; RESP 18; TEMP 36.2; O2SAT 98
--- NOTE | 2021-09-03 22:15 | W.PM.OP ---
Date of service: 09/03/21 Time of Service: 12:16 Operative Note Operative Note DATE OF PROCEDURE: 09/03/21 PRE-OP DIAGNOSIS: Left middle finger trigger finger POST-OP DIAGNOSIS: same PROCEDURE: Trigger Finger Release - Left Middle Finger SURGEON: Aston Gutierres ANESTHESIA TYPE: Local By Surgeon Refer to Anesthesia Record ESTIMATED BLOOD LOSS: 5 PATHOLOGY: none sent TOURNIQUET TIME: 0 COMPLICATIONS: None Patient was transported to: same day Patient's condition: stable Indications: I have seen Edi in clinic for symptoms of a trigger finger. The catching, clicking, locking, and pain limited function. The diagnosis of trigger finger was evident. The symptoms had not responded to conservative measures. I discussed trigger finger release with the patient. I reviewed the risks of the procedure to include, but not limited to, bleeding, infection, pain, stiffness, incomplete release, damage to nerves or vessels, continued catching, recurrence. Despite these risks, the patient elected to proceed. Findings: There was a tightened A1 sherine which was released. The flexor tendons were inspected and the patient was able to move the finger without any catching, clicking, or locking. Procedure Description: Edi was greeted in the preoperative holding area where the correct side was identified and marked. The consent was reviewed with the patient and signed. All questions were answered. He was taken back to the operating room. The patient was placed into the supine position on the operating room table with the left arm on an arm board. All bony prominences were well padded. No prophylactic antibiotics were administered since this was a clean, elective hand surgical case. The left arm was then prepped with Chloraprep and draped in a standard fashion with stockinette and extremity drape. A timeout to confirm correct identity, side and site, procedure, allergies, anesthesia, and medical concerns was performed. The surgical site was marked as a longitudinal incision directly over the A1 sherine of the involved digit. This was confirmed with palpation during finger flexion. This area, overlying the metacarpal head, was then anesthetized with 1% Lidocaine. The patient tolerated this well and once the anesthetic had setup, the procedure began. A longitudinal incision was made through skin only, approximately 1cm. The deep tissues were dissected bluntly. Once the A1 sherine and flexor tendons were identified the soft tissue including neurovascular structures were retracted medially and laterally. There were no crossing structures over the A1 sherine. The proximal edge of the sherine was identified and the sherine was incised with tenotomy scissors. There was a release of the tendons once this was fully released. The tendons were then removed from the wound and inspected. Excess synovium was resected. There was some fraying of the FDP tendon which was debrided. The tendons were then returned and the patient was asked to move the finger into deep flexion and back to extension. There was some residual catching, so this was inspected. There was remnant A1 sherine distally which was released. After this, there was no recreation of the pre-operative symptoms. The hand was then once more inspected for any A0 sherine or area of possible constriction. The wound was then irrigated and the skin was closed with a 4-0 Nylon. This was dressed with gauze and a Conform dressing. The patient tolerated the procedure well and was returned to the Same Day Surgery area in a stable condition suffering no known complication.
== END 2021-09-03 12:30 | disposition home or self-care (01) ==
LOC: SUR 11:17
PROVIDERS: PCP Internal Medicine; Visit Provider Student in an Organized Health Care Education/Training Program
PROC: (CPT 26055; principal; 2021-09-03 11:45)
DX: M65.332 Trigger finger, left middle finger (principal)
CPT/HCPCS: 26055

== ENCOUNTER → 2021-09-12 08:51 | Outpatient (BNVA) | payer MEDICARE, OTHER, SELFPAY | PROVIDERS: PCP Internal Medicine; Referring Provider Internal Medicine; Visit Provider Student in an Organized Health Care Education/Training Program | DX: Z47.89 Encounter for other orthopedic aftercare (principal); M65.332 Trigger finger, left middle finger ==

== ENCOUNTER 2022-12-23 09:57 | Outpatient (CLI) | payer MEDICARE, OTHER, SELFPAY ==
--- NOTE | 2022-12-23 09:15 | DI.RAD_ITS ---
Exam(s) XR SHOULDER LT COMPLETE 2+V EXAM: XR SHOULDER LT COMPLETE 2+V CLINICAL HISTORY: Left shoulder pain. TECHNIQUE: 2D digital imaging was performed. COMPARISON: No exams were available for comparison FINDINGS: 3 views No evidence of acute fracture or dislocation or abnormal soft tissue calcifications. Subacromial space height is lower normal. There are moderate degenerative changes in the glenohumera l joint. Mild joint space narrowing. There also opposing osteophytes on the inferior articular surf aces of the humeral head and osseous glenoid. Mild degenerative changes in the AC joint. Ipsilatera l clavicle appears unremarkable. There are healed left-sided rib fractures noted. Also sternotomy w ires and evidence of previous CABG. IMPRESSION: There are moderate degenerative changes in the glenohumeral joint. DATA REPOSITORY: RADIATION DOSE DELIVERED:
== END 2022-12-23 09:58 | disposition home or self-care (01) ==
LOC: DIORS 09:58
PROVIDERS: PCP Internal Medicine; Referring Provider Internal Medicine; Visit Provider Student in an Organized Health Care Education/Training Program
DX: M75.102 Unspecified rotator cuff tear or rupture of left shoulder, not specified as traumatic
CPT/HCPCS: 99213; 73030

== ENCOUNTER 2023-01-09 01:00 | Outpatient (CLI) | payer MEDICARE, OTHER, SELFPAY ==
--- NOTE | 2023-01-09 11:20 | DI.MRI_ITS ---
Exam(s) MR UPPER JOINT LT WO EXAM: MR UPPER JOINT LT WO CLINICAL HISTORY: left shoulder pain,lt rotator cuff tear,m75.102 TECHNIQUE: Multiplanar multisequence MRI of the shoulder was performed. COMPARISON: CR XR SHOULDER LT COMPLETE 2+V from 12/23/2022 FINDINGS: MARROW:There is no evidence of fracture, Hill-Sachs deformity, nor ominous osseous lesions. ROTATOR CUFF MECHANISM: There is evidence of prior surgery AC JOINT/ACROMIUM: Widening of the AC joint noted which is probably related to prior surgical decompr ession.. There is no evidence of os acromiale. Supraspinatus: Although partially preserved are full-thickness tear of the supraspinatus tendon. No prominent retraction. Mild muscle atrophy. Infraspinatus: There is also full-thickness tearing of anterior aspect of the infraspinatus tendon. Some atrophy also evident. Teres Minor: There is also some edema within the teres minor muscle and partial tearing of the tendon . Subscapularis/anterior cuff: Attenuation of the tendon fibers consistent with full-thickness tearing. Fatty atrophy noted. BICEPS TENDON: Significant thinning consistent with tearing within the intertubercular groove. Upper intra-articular aspect not visualized. LABRUM: There is degenerative tearing of what appears to be all aspects of the labrum. GLENOHUMERAL JOINT: No prominent joint effusion nor obvious loose intra-articular bodies. Moderate c artilage loss. No prominent osteophytes. No degenerative subarticular cysts evident. No loose intr a-articular bodies evident. Inferior glenohumeral ligament is intact. IMPRESSION: 1. There is evidence of previous surgery.. There is diffuse tendinopathy and there are tears involv ing all 4 components of the rotator cuff mechanism as well as an element of atrophy of the muscle bel lies. 2. Biceps tendon is torn and there are also multilevel degenerative tears in the labrum. 3. There is moderate osteoarthritic degenerative change in the glenohumeral joint. No large osteophy sandy evident and no degenerative subarticular cysts. DATA REPOSITORY:
--- NOTE | 2023-01-09 16:33 | DI.VRAD_ITS ---
PROCEDURE INFORMATION: Exam: MR Left Upper Extremity Joint Without Contrast; Shoulder Exam date and time: 01/09/2023 10:53 AM Age: 72 years old Clinical indication: Patient HX: Left shoulder pain. TECHNIQUE: Imaging protocol: Magnetic resonance imaging of the left upper extremity without contrast. Exam focused on the shoulder. COMPARISON: CR XR SHOULDER LT COMPLETE 2+V 12/23/2022 9:52 AM FINDINGS: Bones/joints: Moderate degenerative changes of the glenohumeral joint. Osteophyte formation medial humeral head. Superior migration of the humeral head. Acromioclavicular joint arthropathy with fluid in the joint space. Glenoid labrum: Degeneration/tear of the glenoid labrum. Supraspinatus tendon: Atrophy and tear of the supraspinatus tendon. Infraspinatus tendon: Tear of the distal infraspinatus tendon. Subscapularis tendon: Atrophy and tear of the subscapularis tendon. Teres minor tendon: Tendinopathy changes and partial tear of the teres minor tendon. Tendon of biceps brachii: Biceps tendon is present inferiorly within the bicipital groove. There is a tear of the superior tendon and probable tear of the biceps tendon anchor which is not well visualized. Glenohumeral ligaments: Unremarkable. Soft tissues: Intramuscular edema of the infraspinatus and teres minor. Fatty atrophy of the subscapularis muscle. IMPRESSION: 1. Moderate glenohumeral arthropathy. 2. Acromioclavicular joint arthropathy. 3. Diffuse tendinopathy and tears of the entire rotator cuff. 4. Tear of the proximal biceps tendon with probable tear of the biceps tendon anchor. Dictated and Authenticated by: Stanford Larry MD. Ordering:SHANDRA Raines MD
== END 2023-01-09 01:20 ==
LOC: DI 01:00
PROVIDERS: PCP Internal Medicine; Visit Provider Student in an Organized Health Care Education/Training Program
DX: M75.122 Complete rotator cuff tear or rupture of left shoulder, not specified as traumatic (principal); Z96.651 Presence of right artificial knee joint; M67.813 Other specified disorders of tendon, right shoulder
CPT/HCPCS: 73221

== ENCOUNTER → 2023-01-13 09:55 | Outpatient (BNVA) | payer MEDICARE, OTHER, SELFPAY | PROVIDERS: PCP Internal Medicine; Referring Provider Internal Medicine; Visit Provider Student in an Organized Health Care Education/Training Program | DX: M75.102 Unspecified rotator cuff tear or rupture of left shoulder, not specified as traumatic (principal) | CPT/HCPCS: 99213 ==

== ENCOUNTER → 2023-02-24 12:47 | Outpatient (BNVA) | payer MEDICARE, OTHER, SELFPAY | PROVIDERS: PCP Internal Medicine; Referring Provider Internal Medicine; Visit Provider Student in an Organized Health Care Education/Training Program | DX: M75.102 Unspecified rotator cuff tear or rupture of left shoulder, not specified as traumatic (principal) | CPT/HCPCS: 20610; 99213; J1030 ==

== ENCOUNTER → 2023-11-25 02:57 | Outpatient (CLI) | payer MEDICARE, OTHER, SELFPAY ==
--- NOTE | 2023-11-25 08:30 | DI.CT_ITS ---
Exam(s) CT UPPER EXTREMITY LT WO EXAM: CT UPPER EXTREMITY LT WO CLINICAL HISTORY: SURGICAL PLANNING-DR [place] PROTOCOL M75.102 ROTATOR CUFF TEAR LEFT. TECHNIQUE: Imaging Protocol: Axial computed tomography images with coronal and sagittal reformatted images were created and reviewed. COMPARISON: CR XR SHOULDER LT COMPLETE 2+V from 12/23/2022 FINDINGS: Bones: There is no evidence of acute fracture or dislocation. Old left rib fractures. No cellulitic or osteomyelitic changes are identified. Joints: There is mild spurring at the AC joint. Moderate to severe narrowing of the glenohumeral nitin nt and periarticular spurring. In postsurgical and degenerative lucencies are noted in the humeral h ead. Humeral head mildly superiorly subluxed. Soft Tissues: Normal. IMPRESSION: Advanced degenerative changes of the glenohumeral joint. RADIATION DOSE DELIVERED: 969.45mGy.cm Total DLP 969.45mGy.cm Total DLP DATA REPOSITORY: All CT scans at this facility are submitted to the National Radiology Data Registry (NRDR) Dose Index Registry (DIR) with the [employer] (A[employer]). RADIATION OPTIMIZATION: All CT scans at this facility use at least one of these dose optimization te chniques: automated exposure control; mA and/or kV adjustment per patient size (includes targeted exa ms where dose is matched to clinical indication); or iterative reconstruction.
== END ==
PROVIDERS: PCP Family Medicine; Visit Provider Student in an Organized Health Care Education/Training Program
DX: M19.012 Primary osteoarthritis, left shoulder (principal)
CPT/HCPCS: 73200

== ENCOUNTER → 2023-12-02 13:54 | Outpatient (BNVA) | payer MEDICARE, OTHER, SELFPAY | PROVIDERS: PCP Family Medicine; Referring Provider Family Medicine; Visit Provider Student in an Organized Health Care Education/Training Program | DX: S46.212A Strain of muscle, fascia and tendon of other parts of biceps, left arm, initial encounter (principal); X58.XXXA Exposure to other specified factors, initial encounter; M75.102 Unspecified rotator cuff tear or rupture of left shoulder, not specified as traumatic; M12.812 Other specific arthropathies, not elsewhere classified, left shoulder | CPT/HCPCS: 99214 ==

== ENCOUNTER 2023-12-24 06:07 | Day surgery (SDC) | payer MEDICARE, OTHER, SELFPAY ==
[2023-12-24] VITALS (25 sets, daily range): BP systolic 117–165; BP diastolic 62–84; PULSE 60–82; RESP 13–21; TEMP 36.3–37; O2SAT 93–100; BMI 38.2
[2023-12-24] MEDS: Lactated Ringers 1,000 ML 30 ML IV (06:45)
--- NOTE | 2023-12-24 06:48 | W.PM.OP ---
Date of service: 12/24/23 Time of Service: 08:00 Operative Note Operative Note DATE OF PROCEDURE: 12/24/23 PRE-OP DIAGNOSIS: Left: 1. Rotator cuff arthropathy 2. Proximal biceps rupture 3. Retained failed rotator cuff repair hardware POST-OP DIAGNOSIS: same PROCEDURE: Left: 1. Reverse total shoulder arthroplasty, CPT # 77071 2. Open biceps tenodesis, CPT # 90771 3. Removal of hardware, CPT #60445 The dermatology physician assistant was medically required as this procedure involves retraction, protection of neurovascular structures, and manipulation of multiple instruments and implants at the same time, which cannot be done without a skilled dermatology physician assistant. SURGEON: Olu Portillo [employer]OMATIC SPINNING LATHE SETTER: Beau Mcgee ANESTHESIA TYPE: General LMA/ETT and Primary Nerve Block Refer to Anesthesia Record ESTIMATED BLOOD LOSS: 150 PATHOLOGY: other (suture anchor tip & tissue samples for cultures) COMPLICATIONS: None Patient was transported to: PACU Patient's condition: stable Implants: [employer] modular glenoid system baseplate 24 mm 10 degree full wedge standard [employer] modular glenoid system central post 25 mm [employer] modular glenoid system peripheral locking screws 40 mm inferior, 32 mm superior, 20 mm posterior, 20 mm anterior [employer] modular glenoid system glenosphere 42 +4 mm lateralized [employer] humeral stem 135 degrees size 10 [employer] suture cup size 42 posterior offset [employer] humeral insert size 42 +6 mm constrained Indications: Please see complete medical record for details. Findings: Significant global bursitis scarring and adhesions from prior surgeries. Proximal biceps high-grade partial tearing with some amount stuck/tenodesed in the superior aspect of the bicipital groove about the level of the humeral head cut. Deficient subscapularis supraspinatus infraspinatus. Prior retained suture anchor tip in the humeral head surgical field as well as posterior rotator cuff permanent repair sutures present. No overt signs of infection. Procedure Description: In the operating room, general anesthesia was induced. The patient was positioned beachchair on the operating room table. All bony prominences were well-padded. Preoperative antibiotics were administered. The shoulder was prepped and draped in the usual sterile fashion for shoulder arthroplasty. The correct patient, procedure, and side of the procedure were all verified prior to incision. The deltopectoral approach was preinjected with 0.25% bupivacaine containing epinephrine and taken to the anterior shoulder. Care was taken to bluntly dissect the interval between the deltoid and pectoralis major muscles and to identify the cephalic vein within its fat stripe. The the vein was mobilized laterally. Subdeltoid space and conjoined tendon were freed of adhesions. The long head of the biceps tendon was identified just lateral to the lesser tuberosity. It had partial tearing but still remnant both intra-articular to the glenoid and the partially torn part stock at about the anatomic cut level humeral head. The uppermost margin of the pectoralis major tendon was released from the proximal humerus. The long head of the biceps tendon was tenodesed in situ using SutureTape in a obfklw-[id number] fashion securing it superior margin the pectoralis major tendon below the lateral level of its partial tearing and attachment in order to prevent further retraction and Rajeev deformity cramping. The biceps tendon was amputated and followed proximally to identify the rotator interval. Subscapularis remnant was resected and peeled off the humerus working on bone especially inferiorly to deliver the proximal humerus up and out of the wound. The supraspinatus infraspinatus were deficient with the torn ends of the rotator cuff identified at about the level of the glenoid and abnormal and the infraspinatus can tainting prior permanent suture material, which was removed and used for culture. Appropriate coagulation was achieved especially interiorly. The anatomic neck was cut using an oscillating saw with the humeral head bone brought back table in case there was a need for future bone grafting. The proximal humerus was delivered from the wound with adduction and external rotation. The proximal humeral protection plate was used to provisionally confirm suture cup and glenosphere size. Reamers were started appropriately posterior to the bicipital groove taking care to maintain in line approach with the humeral canal. Sequential reaming was done from size 5 up to size 10. Next, the broaches were sequentially used to open the proximal humerus starting with a size 5 and going up to size 10 and sunk to the appropriate depth while maintaining approximately 25 degrees retroversion. There was good metaphyseal fit and rotational control of the proximal humerus with this size. The proximal humerus preparation revealed the permanent plastic tip of a suture anchor, which was removed and also included with the cultures given revision setting with some other bone and soft tissue about the proximal humerus. The posterior offset guide was used to ream for the suture cup. Attention was then turned to the glenoid and retractors were placed and a circumferential release performed using the long head of the biceps remnant to remove soft tissue about the glenoid rim. Care was taken inferiorly to work on bone only between 5 and 7:00 o'clock and bluntly elevate tissues inferiorly. The VIP guide was placed on the glenoid and used to confirm placement and trajectory of the central guidepin. The guidepin was inserted and advanced just through the far cortex ensuring adequate central fixation length. The glenoid was prepared according to resident assistant cna specifications for a standard augmented baseplate and central post. The baseplate was impacted onto the glenoid surface. The locking guide was then used to drill and place appropriately lengthed inferior, superior, anterior, and posterior screws. The jpwv-gfn-vksessegy reamer was used to confirm adequate peripheral reaming. The glenosphere was applied with the stick inserter and then impacted to engage the Tinoco taper. It was then locked with appropriate countersinking of the setscrew. The glenosphere was inspected and found to have good fit, appropriate positioning, and no soft tissue or bony impingement. Attention was then turned back to the proximal humerus. The humeral trial cup was connected. Trialing was commenced with +3 mm liner. The shoulder was reduced and taken through range of motion. Trial components were built up to +6 mm liner to achieve good stability and appropriate tension on the deltoid and conjoined tension. The trial components were removed from the proximal humerus. The wound was copiously irrigated with normal saline. The humeral component and suture cup were impacted into place. The trial liner was added, and the shoulder was reduced and range of motion, stability, and tension confirmed to be appropriate. The final +6mm liner was then connected, constrained chosen due to devoid rotator cuff, and range of motion, stability, and tension confirmed. The shoulder was copiously irrigated with Betadine and normal saline. Vancomycin powder was distributed deeply about the shoulder and through subcutaneous tissues. The deltopectoral interval was loosely approximated burying the cephalic vein with 2-0 Monocryl. Subcutaneous tissue was irrigated then closed using 2-0 Monocryl in a buried interrupted fashion. Skin was closed using 3-0 Monocryl in a buried subcuticular fashion. Skin glue was applied to the incision. A silver impregnated bandage was placed over the incision. The extremity was placed into a shoulder immobilizer. The patient awoke from anesthesia without complication and was taken to the recovery room in stable condition.
--- NOTE | 2023-12-24 07:04 | ANES.PREOP_ITS ---
General Info Date of Service Date Performed: 12/24/23 Height: 5 ft 7 in Weight: 110.9 kg Body Mass Index (BMI): 38.2 Surgical Procedure: Operation Date: 12/24/23 08:10 Proposed Procedure Side Surgeon p Shoulder Reverse Total Arthroplasty Left Olu Portillo MD Meds Allergies and Home Medications Allergies Allergy/AdvReac Type Severity Reaction Status Date / Time No Known Allergies Allergy Verified 12/24/23 06:08 Home Medication Medication Instructions Recorded omega-3 fatty acids 500 mg capsule 1 tab PO BID 10/05/14 (Fish Oil) pantoprazole 40 mg tablet,delayed 40 mg PO DAILY 10/05/14 release amitriptyline 10 mg tablet 10 mg PO HS PRN 10/06/14 cholecalciferol (vitamin D3) 75 2 tab PO BID 10/06/14 mcg (3,000 unit) tablet duloxetine 60 mg capsule,delayed 60 mg PO BID 10/06/14 release (Cymbalta) methylcellulose (laxative) 500 mg 2 ea PO HS 10/06/14 tablet (Fiber Laxative (methylcellulose)) gabapentin 300 mg capsule 900 mg PO TID 11/19/20 insulin detemir U-100 100 unit/mL 20 unit subcut BID 11/19/20 (3 mL) subcutaneous pen (Levemir FlexTouch U-100 Insulin) insulin lispro 100 unit/mL 22.5 unit subcut QAC 11/19/20 subcutaneous half-unit pen (Humalog Gildardo KwikPen (U-100)) valsartan 160 mg tablet 80 mg PO DAILY 11/19/20 atorvastatin 20 mg tablet (Lipitor) 40 mg PO DAILY 02/12/21 empagliflozin 25 mg tablet 25 mg PO DAILY 12/02/23 (Jardiance) mecobalamin (vitamin B12) 1,000 1,000 mcg PO DAILY 12/02/23 mcg chewable tablet metformin 1,000 mg tablet 1,000 mg PO BID 12/02/23 aspirin 81 mg tablet,delayed 81 mg PO DAILY 12/24/23 release naproxen 250 mg tablet 250 mg PO BID PRN Moderate pain 12/24/23 #30 tabs oxycodone 5 mg tablet 5 - 10 mg (1 - 2 x 5 mg) PO Q4H 12/24/23 PRN Moderate to severe pain #12 tabs Current Visit Medications: Current Medications Generic Name Dose Route Start Last Admin Trade Name Koltonq PRN Reason Stop Dose Admin Acetaminophen 1,000 mg 12/24/23 06:47 Acetaminophen 500 Mg Tab PO 01/23/24 06:46 Q6H PRN PRN Ringer's Solution 1,000 mls @ 30 mls/hr 12/24/23 06:00 12/24/23 06:45 IV 01/22/24 23:59 30 mls/hr INFUSION SHELLIE Administration Cefazolin Sodium 3,000 mg/ 100 mls @ 200 mls/hr 12/24/23 06:00 Sodium Chloride IVPB 12/24/23 16:00 PREOP SHELLIE Tranexamic Acid/Sodium Chloride 1,000 mg in 100 mls @ 600 mls/hr 12/24/23 06:00 IVPB 12/24/23 16:00 PREOP SHELLIE Cefazolin Sodium/Dextrose 1 gm in 50 mls @ 100 mls/hr 12/24/23 11:30 Ancef Duplex IVPB 12/24/23 11:59 ONCE ONE IV Miscellaneous Supplies 1 each 12/24/23 06:00 Iv Access IV 01/22/24 23:59 DIRECTED SHELLIE Lactobacillus Acidophilus/Casei 1 cap 12/24/23 12:30 L. Acidophilus, Casei, Rhamnosus Cap PO 01/23/24 12:29 DAILY SHELLIE Naproxen 250 - 500 mg 12/24/23 06:47 Naproxen 500 Mg Tab PO 01/23/24 06:46 BID PRN PRN Sodium Chloride 0 ml 12/24/23 06:00 Normal Saline Flush 10 Ml Syr IV 01/22/24 23:59 PRN PRN Sodium Chloride 0 ml 12/24/23 06:00 Normal Saline 10 Ml Vial IJ 01/22/24 23:59 DIRECTED PRN Sterile Water 0 ml 12/24/23 06:00 Water,Injection,Sterile 10 Ml Vial IJ 01/22/24 23:59 DIRECTED PRN PFSH Active Problems Active Problems: Problem Status Onset Code Rotator cuff tear arthropathy of left shoulder M75.102, M12.812 Rupture of left proximal biceps tendon S46.212A History of total right knee replacement (TKR) 02/19/21 Z96.651 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 Medical History Medical History Left rotator cuff tear (~12/09/22) Hypertension Diabetes Insulin-dependent Surgical History Surgical History History of repair of anterior cruciate ligament of left knee History of tonsillectomy and adenoidectomy S/P right knee arthroscopy x2 Status post ankle arthrodesis LEFT History of carpal tunnel release RIGHT 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 Butler 1 year ago-MD stated he no longer needed to follow up with him after last visit. History of total left knee replacement (TKR) bilateral per pt Trigger finger, left middle finger Injection: 11/19/2020 S/P release: 09/03/2021 Open Carpal Tunnel release (~05/2016) RIGHT/DR. OTOOLE Tobacco Smoking/Tobacco Use Status: Never Alcohol Alcohol Intake: current Alcohol intake frequency: holidays/special occasions only Alcohol type: beer, wine and hard liquor Substance Use Substance use: Never Substance use type: does not use Details: alcohol: unknown Vital Signs and Lab Results Vital Signs Most Recent Vital Signs in EMR: Most Recent Vital Signs Temp Pulse Resp BP Pulse Ox 36.7 C 60 16 158/73 H 96 12/24/23 06:16 12/24/23 06:16 12/24/23 06:16 12/24/23 06:16 12/24/23 06:16 Point of Care Results Point of Care Results: Finger Stick Blood Glucose 194 12/24/23 06:44 Lab Results Blood Type / Crossmatch: No Data to Display Complete Blood Count: No Data to Display Complete Metabolic Panel: No Data to Display Liver Function Panel: No Data to Display Coagulation Panel: No Data to Display Cardiac Panel: No Data to Display Arterial Blood Gas: No Data to Display Venous Blood Gas: No Data to Display Pancreas Panel: No Data to Display Thyroid Panel: No Data to Display Infectious Disease: No Data to Display Blood Cultures: No Data to Display Toxicology Panel: No Data to Display Imaging and Studies Imaging and Studies Study information below may be from another EMR and interpreted by another provider. Please see original notes in EMR for more complete details. Echocardiogram Summary: 01/21/23 EF 60-65%, LVH, mild , trace MR, TR Anesthesia Assessment and Plan Anesthesia History Personal History: No History of Anesthesia Complications Family History: No Family History of Anesthesia Complications Exercise Tolerance Exercise Tolerance: Metabolic Equivalents>4 Pertinent Negatives Pertinent Negatives: No Symptoms of GERD, No Major Cardiovascular Symptoms or Complaints and No Major Pulmonary Symptoms or Complaints Cardiac & Pulmonary Exam Cardiac Exam: Normal S1/S2 Heart Sounds Pulmonary Exam: Clear Bilateral Breath Sounds Implantable Cardiac Device Does patient have a Pacemaker or an ICD?: No Airway Exam Known Difficult Airway: No Mallampati Class: 2 Mouth Opening: Normal (> 3cm) Thyromental Distance: Greater than 3 cm Neck Range of Motion: Full ROM Neck Circumference: Thick Teeth Condition: Normal Dentition ASA Classification ASA Score: ASA 3 Emergency Case?: No NPO Status NPO Status: NPO Clears >2 hours, Solids >8 hours Anesthesia Plan Resuscitation Status: Full Code Anesthesia Technique: General Anesthesia Airway Planned: Endotracheal Tube Pain Management: Surgeon and patient request nerve block Monitors Used: Standard Monitors Preoperative Comments:: Saw director of land acquisition yesterday, cleared for surgery, to continue ASA perioperatively.
--- NOTE | 2023-12-24 07:06 | PDOC.DSDIS_ITS ---
Date of service: 12/24/23 Time of Service: 14:00 Discharge Plan Disposition Patient Disposition: Home Condition: Stable Discharge Details Attending Provider: Olu Portillo Primary Care Provider: Damian Soriano Home Meds and New Rx's Prescriptions: New naproxen 250 mg tablet 250 mg PO BID PRN (Reason: Moderate pain) Qty: 30 0RF oxycodone 5 mg tablet 5 - 10 mg PO Q4H PRN (Reason: Moderate to severe pain) Qty: 12 0RF Continued insulin lispro [Humalog Gildardo KwikPen U-100] 100 unit/mL insulin pen, half- unit 22.5 unit subcut [facility] Patient Comments: pt. reports max is 18 units Levemir FlexTouch U100 Insulin 100 unit/mL (3 mL) insulin pen 20 unit subcut BID Patient Comments: 6 units this AM Rx Instructions: 20 AM and 44 HS valsartan 160 mg tablet 80 mg PO DAILY Jardiance 25 mg tablet 25 mg PO DAILY metformin 1,000 mg tablet 1,000 mg PO BID mecobalamin (vitamin B12) 1,000 mcg tablet,chewable 1,000 mcg PO DAILY amitriptyline 10 MG tablet 10 mg PO HS PRN Patient Comments: pt reports only taking when needed Fiber Laxative(methylcellulos) 500 MG tablet 2 ea PO HS cholecalciferol (vitamin D3) 3,000 UNIT tablet 2 tab PO BID duloxetine [Cymbalta] 60 MG capsule,delayed release(DR/EC) 60 mg PO BID gabapentin 300 mg capsule 900 mg PO TID pantoprazole 40 MG tablet,delayed release (DR/EC) 40 mg PO DAILY Fish Oil 500 MG capsule 1 tab PO BID atorvastatin [Lipitor] 20 mg tablet 40 mg PO DAILY No Action aspirin 81 mg tablet,delayed release (DR/EC) 81 mg PO DAILY Discharge Instructions Additional Instructions: Surgery: Left reverse total shoulder arthroplasty (constrained liner) with biceps tenodesis and removal of hardware Activity: Do not lift anything heavier than a coffee. You should keep your arm at your side in a relatively neutral position at all times except for gentle range of motion exercises, physical therapy, and essential activities. You should use the sling whenever you are out of the house. You may have to adjust the abduction pillow or remove it for comfort. At home it is best to remove the sling and rest the arm on a pillow at your side or support the operative side with your other hand. A physical therapy prescription will be sent electronically to start in about 3 weeks. STANDARD Reverse TSA Protocol. Prescriptions: Resume home aspirin medication this evening Naproxen 250 mg take 1 every 12 hours with a meal as needed for moderate pain Oxycodone 5 mg take 1-2 every 4-6 hours as needed for severe pain You may use [id number] Tylenol (acetaminophen) as needed for mild pain. These pain medications may be taken all at once or in different combinations as needed. Also, recommend Colace (docusate) as a stool softener as surgery and pain medicine cause constipation. You may try xene-wwi-zaweska diphenhydramine (Benadryl) 25-50 mg nightly as a sleep aid Dressings: Leave dressing in place until follow-up. Keep clean and dry at all times. No showers please. Follow-up: 10-[address] Portillo You may take off the leg compression stockings this evening at home. You may also leave them on a few days longer if you have a history of leg swelling or edema. Please call the office during business hours with any questions or concerns. Let us know right away if you develop any redness, drainage, fevers, chest pain, or trouble breathing. Do not drink alcohol or drive for at least 24 hours after anesthesia. Stand Alone Forms: Anesthesia Discharge Inst., Anes.Nerve Block Instructions, Mirela Saldaña (DSU) Discharge Orders Discharge Orders: Discharge Order (Routine); Ordered 12/24/23 Ordered By: Olu Portillo DS: Diagnosis Discharge Diagnosis (1) Rotator cuff tear arthropathy of left shoulder: Status: Acute
--- NOTE | 2023-12-24 07:32 | W.ANESNERVE ---
Nerve Block Single Injection Procedure Date and Time Date Performed: 12/24/23 Procedure Start: 07:19 Location Where Procedure Performed Procedure Location: Day Surgery Unit Reason Performed: Postoperative Analgesia Requesting Provider: Olu Portillo Timeout Performed Timeout Performed: Yes Monitoring Used ECG, Blood Pressure, SpO2 and See EMR for corresponding vital signs Sterility Sterility: Hand Hygiene, Surgical Cap, Surgical Mask, Sterile Gloves and Chlorhexidine Sedation Given During Procedure Sedation Given (Indicate Dose Given): Versed IV Dose:: 2 mg Patient Mental Status Patient Mental Status: Sedate with meaningful communication Nerve Block 1st Nerve Block: Laterality: Left Block Type: Interscalene Ultrasound Image Saved?: Yes Needle / Catheter Used: 100mm SonoPlex II Local Anesthetic Bolus (Indicate Dose Given): Lidocaine used for local infiltration of skin, Injected in 3-5ml increments after negative blood aspiration, Bupivacaine 0.25% Dose:: 10 ml and Exparel Dose:: 10 ml Additives (Indicate Dose Given): None Ultrasound: Sterile probe cover and gel used Nerve Stimulator: Supplement to Ultrasound use and No twitch or parasthesia noted < 0.5 mA Paresthesia: None Procedure Tolerated: No Complications and Patient tolerated well Procedure Outcome: Successful Procedure Comment: Nato Cisneros assisted Performed By: Temi Griffith
[2023-12-24] MEDS: ceFAZolin 3,000 MG in Normal Saline 100 ML 200 MG IVPB (07:44)
[2023-12-24] MEDS: TRANEXAMIC ACID/SOD. CHL. 1,000 MG/100 ML BAG 600 MG IVPB (08:00)
[2023-12-24] MEDS: Bupivacaine 0.25% Pres-Free W/EPI 30 ML VIAL (08:52)
--- NOTE | 2023-12-24 11:35 | DI.RAD_ITS ---
Exam(s) XR SHOULDER LT COMPLETE 2+V EXAM: XR SHOULDER LT COMPLETE 2+V CLINICAL HISTORY: Shoulder arthritis. TECHNIQUE: 2D digital imaging was performed of the left shoulder. Three images were obtained. AP, Y and Grashey views were obtained. COMPARISON: CR XR SHOULDER LT COMPLETE 2+V from 12/23/[address] UPPER EXTREMITY LT WO from 11/25/2023 FINDINGS: The patient is now status post left total reverse shoulder replacement. The orthopedic hardware appe ars in good position. Postsurgical changes are seen in the soft tissues. IMPRESSION: Status post left total reverse shoulder replacement. DATA REPOSITORY: RADIATION DOSE DELIVERED:
[2023-12-24] MEDS: ceFAZolin 1 GM/50 ML BAG IVPB (11:44)
[2023-12-24] MEDS: Normal Saline Flush 10 ML SYR IV (12:17)
--- NOTE | 2023-12-24 12:28 | W.ANESPOSTOP ---
Postoperative Evaluation Date, Time and Location Date Performed: 12/24/23 Time Performed: 12:10 Patient Location: Day Surgery Unit Vital Signs Most Recent Imported Vital Signs: Most Recent Vital Signs Temp Pulse Resp BP Pulse Ox 36.7 C 68 21 156/69 H 95 12/24/23 11:52 12/24/23 11:52 12/24/23 11:52 12/24/23 11:52 12/24/23 11:52 Pain Score Most Recent Pain Score: Most Recent Pain Score Pain Level 0 12/24/23 11:52 Assessment Mental Status: Awake (Alert & Oriented to Patient Baseline) Airway and Respiratory Function: Patent airway with normal (patient baseline) respiratory exam Cardiovascular Function: Hemodynamically Stable Hydration Status: Adequately Hydrated Nausea & Vomiting: No Nausea or Vomiting Pain: Pt. Denies Any Pain Peripheral Nerve Block: Regional nerve block not resolved at time of post operative discharge Postoperative Comments:: Assessed patient's tolerance to lie flat due to SOB with position change pre induction. No change in respiratory status even when fully flat.
[2023-12-24] MEDS: Lactobacillus Acidophilus CAP 1 CAP PO (12:52)
== END 2023-12-24 13:53 | disposition home or self-care (01) ==
PROVIDERS: PCP Family Medicine; Visit Provider Student in an Organized Health Care Education/Training Program
PROC: (CPT 23472; principal; 2023-12-24 08:00)
DX: M75.102 Unspecified rotator cuff tear or rupture of left shoulder, not specified as traumatic (principal); M12.812 Other specific arthropathies, not elsewhere classified, left shoulder
CPT/HCPCS: 20680; 23472; C1713; 76942; 73030; 87070; 87075; 87205; C9290; J0665; J0690; J2001; J2250; J2371; J2704; J3370

== ENCOUNTER 2023-12-28 10:48 | Outpatient (REF) | payer MEDICARE, OTHER, SELFPAY ==
[2023-12-28 15:49] LABS: HCT 29.8 % (40.0-50.0); HGB 9.6 g/dL (13.5-17.5); MCH 28.7 pg (27.0-33.0); MCHC 32.2 % (32.0-36.0); MCV 89 fL (80-95); MPV 10.6 fL (8.0-11.0); Platelet Count 349 10^3/uL (130-400); RBC 3.35 10^6/uL (4.36-5.78); RDW-SD 45.4 fL; WBC 9.28 10^3/uL (4.4-10.8)
== END 2023-12-28 10:49 | disposition home or self-care (01) ==
LOC: LBN 10:48
PROVIDERS: PCP Family Medicine; Visit Provider Physician Assistant
DX: D64.9 Anemia, unspecified (principal); Z96.612 Presence of left artificial shoulder joint
CPT/HCPCS: 85027

== ENCOUNTER 2024-01-05 15:35 | Outpatient (CLI) | payer MEDICARE, OTHER, SELFPAY ==
--- NOTE | 2024-01-05 09:45 | DI.RAD_ITS ---
Exam(s) XR SHOULDER LT COMPLETE 2+V EXAM: XR SHOULDER LT COMPLETE 2+V CLINICAL HISTORY: F/U LEFT RTSA. TECHNIQUE: 2D digital imaging was performed. Three images were obtained. Y and Grashey views were o btained. COMPARISON: CR XR SHOULDER LT COMPLETE 2+V from 12/24/2023 FINDINGS: BONES: There are stable post operative changes of a left total reverse shoulder replacement present. No fracture or dislocation. Old left rib fractures. Sternal wires are in place. JOINTS: The orthopedic hardware is in good position. No evidence of hardware loosening. Degenerativ e changes are seen at the acromioclavicular joint SOFT TISSUE: Normal. IMPRESSION: Stable left total reverse shoulder replacement. DATA REPOSITORY: RADIATION DOSE DELIVERED:
== END 2024-01-05 15:36 | disposition home or self-care (01) ==
PROVIDERS: PCP Family Medicine; Visit Provider Student in an Organized Health Care Education/Training Program
DX: Z96.612 Presence of left artificial shoulder joint (principal); Z47.1 Aftercare following joint replacement surgery
CPT/HCPCS: 73030

== ENCOUNTER → 2024-01-12 13:02 | Outpatient (BNVA) | payer MEDICARE, OTHER, SELFPAY | PROVIDERS: PCP Family Medicine; Visit Provider Student in an Organized Health Care Education/Training Program | DX: Z47.1 Aftercare following joint replacement surgery (principal); Z96.612 Presence of left artificial shoulder joint ==

== ENCOUNTER → 2024-01-19 11:25 | Outpatient (BNVA) | payer MEDICARE, OTHER, SELFPAY | PROVIDERS: PCP Family Medicine; Visit Provider Student in an Organized Health Care Education/Training Program | DX: Z47.1 Aftercare following joint replacement surgery (principal); Z96.612 Presence of left artificial shoulder joint ==

== ENCOUNTER 2024-02-16 14:49 | Outpatient (CLI) | payer MEDICARE, OTHER, SELFPAY ==
--- NOTE | 2024-02-16 11:00 | DI.RAD_ITS ---
Exam(s) XR SHOULDER LT COMPLETE 2+V EXAM: XR SHOULDER LT COMPLETE 2+V CLINICAL HISTORY: F/U LEFT RTSA. TECHNIQUE: 2D digital imaging was performed. Two images were obtained. Grashey and Y views were obt ained. 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 No fracture or dislocation. JOINTS: The orthopedic hardware is in good position. No evidence of hardware loosening. SOFT TISSUE: Normal. IMPRESSION: Stable left total reverse shoulder replacement. DATA REPOSITORY: RADIATION DOSE DELIVERED:
== END 2024-02-16 14:50 | disposition home or self-care (01) ==
LOC: DIORS 14:50
PROVIDERS: PCP Family Medicine; Referring Provider Family Medicine; Visit Provider Student in an Organized Health Care Education/Training Program
DX: Z47.1 Aftercare following joint replacement surgery (principal); Z96.612 Presence of left artificial shoulder joint
CPT/HCPCS: 73030

== ENCOUNTER 2024-04-12 14:36 | Outpatient (CLI) | payer MEDICARE, OTHER, SELFPAY ==
--- NOTE | 2024-04-12 10:45 | DI.RAD_ITS ---
Exam(s) XR SHOULDER LT COMPLETE 2+V EXAM: XR SHOULDER LT COMPLETE 2+V CLINICAL HISTORY: F/U LEFT RTSA. TECHNIQUE: 2D digital imaging was performed. COMPARISON: CT CT UPPER EXTREMITY LT WO from 11/25/2023 CR XR SHOULDER LT COMPLETE 2+V from 12/24/2023 CR XR SHOULDER LT COMPLETE 2+V from 01/05/2024 CR XR SHOULDER LT COMPLETE 2+V from 02/16/2024 FINDINGS: Two views Position alignment of the components of the reverse prosthesis remain stable with no fracture or loos ening evident. IMPRESSION: Stable satisfactory appearance DATA REPOSITORY: RADIATION DOSE DELIVERED:
== END 2024-04-12 14:37 | disposition home or self-care (01) ==
LOC: DIORS 14:36
PROVIDERS: PCP Family Medicine; Visit Provider Student in an Organized Health Care Education/Training Program
DX: Z47.1 Aftercare following joint replacement surgery (principal); Z96.612 Presence of left artificial shoulder joint
CPT/HCPCS: 99213; 73030

== ENCOUNTER 2024-10-17 15:23 | Outpatient (CLI) | payer MEDICARE, OTHER, SELFPAY ==
--- NOTE | 2024-10-17 08:15 | DI.RAD_ITS ---
Exam(s) XR HIP LT COMPLETE AP PELVIS EXAM: XR HIP LT COMPLETE AP PELVIS CLINICAL HISTORY: L hip pain. TECHNIQUE: 2D digital imaging was performed. COMPARISON: No exams were available for comparison FINDINGS: Two views No evidence of pelvic nor hip fracture. Mild degenerative changes noted in the right hip and mild-moderate degenerative changes in the left h ip. Although there does not appear to be significant joint space narrowing, on the frog lateral view of the left hip there are degenerative subarticular cysts evident. Also small osteophyte of the fem oral head oval. 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 DATA REPOSITORY: RADIATION DOSE DELIVERED:
== END 2024-10-17 15:24 | disposition home or self-care (01) ==
LOC: DIORS 15:23
PROVIDERS: PCP Family Medicine; Referring Provider Family Medicine; Visit Provider Student in an Organized Health Care Education/Training Program
DX: M25.552 Pain in left hip (principal); M48.061 Spinal stenosis, lumbar region without neurogenic claudication; M79.605 Pain in left leg
CPT/HCPCS: 99213; 73502